=== PATIENT | female | born 1935 ===

== ENCOUNTER 2018-03-08 20:55 | Inpatient (IN) | payer MEDICAID, OTHER ==
[2018-03-08 20:55] VITALS: BMI 23.8
--- NOTE | 2018-03-08 21:20 | ED PDOC ---
Arrival/HPI - General Chief Complaint: Pain, Chronic Time Seen by Provider: 03/08/18 20:58 Historian: Patient, Family - History of Present Illness Narrative History of Present Illness (Text): 03/08/18 21:20 Sherrell Gallagher is an 82 year old female smoker, whose past medical history includes hypertension and glaucoma, who presents to the ED accompanied by family complaining of headache. Patient states she has been experiencing headache with associated non-reproducible left shoulder pain radiating down her arm for the past 4 days. Daughter states patient took Ibuprofen 800mg twice today at home, once 1 hour prior to arrival, with no significant relief. Patient denies any chest pain, shortness of breath, dizziness, vision changes, or any other complaints. Patient regularly takes Hydrochlorothiazide. Time/Duration: < week Symptom Onset: Gradual Symptom Course: Unchanged Activities at Onset: Light Context: Home Past Medical History - Provider Review Nursing Documentation Reviewed: Yes - Travel History If Yes, travel location?: [facility] - Infectious Disease Hx of Infectious Diseases: None - Cardiac Hx Cardiac Disorders: Yes Hx Hypertension: Yes - Pulmonary Hx Respiratory Disorders: No - Neurological Hx Neurological Disorder: No - HEENT Hx HEENT Disorder: Yes Hx Cataracts: Yes Hx Glaucoma: Yes - Renal Hx Renal Disorder: No - Endocrine/Metabolic Hx Endocrine Disorders: No - Hematological/Oncological Hx Blood Disorders: No - Integumentary Hx Dermatological Disorder: No - Musculoskeletal/Rheumatological Hx Musculoskeletal Disorders: No - Gastrointestinal Hx Gastrointestinal Disorders: No - Genitourinary/Gynecological Hx Genitourinary Disorders: No - Psychiatric Hx Psychophysiologic Disorder: No Hx Substance Use: No - Surgical History Hx Cataract Extraction: Yes - Anesthesia Hx Anesthesia: Yes Hx Anesthesia Reactions: No Hx Malignant Hyperthermia: No Family/Social History - Physician Review Nursing Documentation Reviewed: Yes Family/Social History: Unknown Family HX Smoking Status: Heavy Smoker > 10 Cigarettes Daily Hx Alcohol Use: No Hx Substance Use: No Allergies/Home Meds Allergies/Adverse Reactions: Allergies No Known Allergies Allergy (Verified 03/08/18 20:58) Home Medications: Home Meds Medication Instructions Recorded Confirmed hydroCHLOROthiazide [Microzide] 50 mg PO DAILY 03/08/18 03/08/18 Review of Systems - Physician Review All systems were reviewed & negative as marked: Yes - Review of Systems Constitutional: Normal. absent: Fevers Eyes: Normal ENT: Normal Respiratory: Normal. absent: SOB, Cough Cardiovascular: Normal. absent: Chest Pain Gastrointestinal: Normal. absent: Abdominal Pain, Diarrhea, Nausea, Vomiting Genitourinary Female: Normal. absent: Dysuria, Frequency, Hematuria, Urine Output Changes Musculoskeletal: Arthralgias (+left shoulder pain). absent: Back Pain, Neck Pain Skin: Normal. absent: Rash Neurological: Headache (+headache). absent: Dizziness Endocrine: Normal Hemo/Lymphatic: Normal Psychiatric: Normal Physical Exam Vital Signs Reviewed: Yes Vital Signs Temp Pulse Resp BP Pulse Ox 03/08/18 21:39 88 169/107 H 03/08/18 21:01 98.0 F 90 16 190/101 H 95 Temperature: Afebrile Blood Pressure: Hypertensive Pulse: Regular Respiratory Rate: Normal Appearance: Positive for: Well-Appearing, Non-Toxic, Comfortable Pain Distress: None Mental Status: Positive for: Alert and Oriented X 3 - Systems Exam Head: Present: Atraumatic, Normocephalic Pupils: Present: PERRL Extroacular Muscles: Present: EOMI Conjunctiva: Present: Normal Ears: Present: Normal, NORMAL TM, Normal Canal. No: Erythema, TM Bulging, Fluid , TM Perf Mouth: Present: Moist Mucous Membranes Pharnyx: Present: Normal. No: ERYTHEMA, EXUDATE, TONSILS ENLARGED, Peritonsilar Swelling, Uvular Deviation, Muffled/Hoarse Voice, Strider, Soft Palate/Uvular Edema Nose (External): Present: Atraumatic Nose (Internal): Present: Normal Inspection Neck: Present: Normal Range of Motion. No: Meningeal Signs, MIDLINE TENDERNESS , Paraspinal Tenderness Respiratory/Chest: Present: Clear to Auscultation, Good Air Exchange. No: Respiratory Distress, Accessory Muscle Use Cardiovascular: Present: Regular Rate and Rhythm, Normal S1, S2. No: Murmurs Abdomen: No: Tenderness, Distention, Peritoneal Signs Back: Present: Normal Inspection. No: CVA Tenderness, Midline Tenderness, Paraspinal Tenderness Upper Extremity: Present: Normal Inspection. No: Cyanosis, Edema Lower Extremity: Present: Normal Inspection. No: Edema Neurological: Present: GCS=15, CN II-XII Intact, Speech Normal, Motor Func Grossly Intact, Normal Sensory Function, Normal Cerebellar Funct, Memory Normal Skin: Present: Warm, Dry, Normal Color. No: Rashes Psychiatric: Present: Alert, Oriented x 3, Normal Insight, Normal Concentration Medical Decision Making ED Course and Treatment: 03/08/18 21:20 Impression: 82 year old female c/o headache and left shoulder pain for the past 4 days. Plan: -- CT Head w/o contrast -- EKG -- CXR -- Labs, cardiac enzymes -- Catapres -- Tylenol -- Reassess and disposition Prior Visits: Notes and results from previous visits were reviewed. Progress Notes: Reviewed EKG, NSR at 95 bpm. Inferior infarct. Anterior infarct. Non-specific ST /T wave changes. 03/08/18 22:54 Reviewed radiology, CXR shows no acute processes. CT Head shows: FINDINGS: BRAIN: Involutional changes. Periventricular hypoattenuation suggestive of chronic ischemic changes. No hemorrhage. VENTRICLES: No ventriculomegaly. BONES/JOINTS: Unremarkable. No acute fracture. SOFT TISSUES: Unremarkable. VASCULATURE: Atherosclerosis. SINUSES: Unremarkable as visualized. No acute sinusitis. MASTOID AIR CELLS: Unremarkable as visualized. No mastoid effusion. 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 Correlate with MRI. IMPRESSION: 1. Involutional changes. Periventricular hypoattenuation suggestive of chronic ischemic changes. 2. 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 Correlate with MRI. Dictated and Authenticated by: Chandni Morales MD 03/08/2018 10:20 PM Eastern Time ([place] & [place]) 03/08/18 23:41 Labs noted, potassium: 5.6. Kayexalate ordered. 03/08/18 23:44 Case discussed with medical office administrator hand almond blancher, who is aware and agrees with plan. 03/08/18 23:[address] Fernandez, who is aware and agrees with plan. Accepts pt in to hospitalist service. Pt will go to Telemetry observation for brain mass, shoulder/arm pain, and hyperkalemia. - Lab Interpretations Lab Results: 03/08/18 21:45 03/08/18 21:45 Lab Results 03/08/18 21:53: POC Glucose (mg/dL) 88 03/08/18 21:45: WBC 14.9 H, RBC 4.47, Hgb 14.2, Hct 41.3, MCV 92.4, MCH 31.8, MCHC 34.4, RDW 14.0, Plt Count 342, MPV 10.9 03/08/18 21:45: Sodium 141, Potassium 5.6 H*, Chloride 101, Carbon Dioxide 30, Anion Gap 15, BUN 36 H, Creatinine 1.7 H, Est GFR ( Amer) 35, Est GFR ( Non-Af Amer) 29, Random Glucose 100, Calcium 11.1 H, Total Bilirubin 0.5, AST 31 , ALT 16, Alkaline Phosphatase 102, Lactate Dehydrogenase 455, Total Creatine Kinase 32 L, Troponin I < 0.01, Total Protein 8.4 H, Albumin 4.1, Globulin 4.3, Albumin/Globulin Ratio 1.0 L 03/08/18 21:45: PT 12.5, INR 1.09, APTT 33.1 I have reviewed the lab results: Yes - RAD Interpretation Radiology Orders: 03/08/18 21:22 CHEST PORTABLE [RAD] Stat 03/08/18 21:24 HEAD W/O CONTRAST [CT] Stat Environmental Adviser: ED Physician, Radiologist - EKG Interpretation Interpreted by ED Physician: Yes Type: 12 lead EKG - Medication Orders Current Medication Orders: Discontinued Medications Acetaminophen (Tylenol 325mg Tab) 650 mg PO STAT STA Stop: 03/08/18 21:25 Last Admin: 03/08/18 21:37 Dose: 650 mg [facility] Pain/Vitals Document 03/08/18 21:37 (Rec: 03/08/18 21:38 [id number] Location Pain Location [employer] Description Constant Re-Assess: VARGAS Pain/Vitals Document 03/08/18 22:37 (Rec: 03/08/18 23:55 [id number] Pain Reassessment Is This A Pain ReAssessment? Yes Sleep Is patient sleeping during reassessment? Yes Clonidine HCl (Catapres) 0.2 mg PO STAT STA Stop: 03/08/18 21:26 Last Admin: 03/08/18 21:39 Dose: 0.2 mg [facility] Pulse and Blood Pressure Document 03/08/18 21:39 (Rec: 03/08/18 21:39 [id number]) Pulse Pulse Rate (60-90 beats/min) 88 Blood Pressure Blood Pressure (100/60-150/90 mm Hg) 169/107 Sodium Polystyrene Sulfonate (Kayexalate Susp) 30 gm PO ONCE ONE Stop: 03/08/18 23:42 Last Admin: 03/08/18 23:53 Dose: 30 gm - Scribe Statement The provider has reviewed the documentation as recorded by the Alexisibjohn Jacome All medical record entries made by the Scribe were at my direction and personally dictated by me. I have reviewed the chart and agree that the record accurately reflects my personal performance of the history, physical exam, medical decision making, and the department course for this patient. I have also personally directed, reviewed, and agree with the discharge instructions and disposition. Disposition/Present on Arrival - Present on Arrival Any Indicators Present on Arrival: No History of DVT/PE: No History of Uncontrolled Diabetes: No Urinary Catheter: No History of Decub. Ulcer: No History Surgical Site Infection Following: None - Disposition Have Diagnosis and Disposition been Completed?: Yes Diagnosis: Brain mass, Hyperkalemia, Left shoulder pain Disposition: HOSPITALIZED Disposition Time: 00:12 Patient Plan: Observation Condition: STABLE Forms: [employer] ([place])
[2018-03-08 22:36] LABS: HEMOGLOBIN 14.2 g/dL (12.0-16.0); MEAN CELL VOLUME 92.4 fl (80.0-105.0); MEAN CORPUSCULAR HEMOGLOBIN 31.8 pg (25.0-35.0); MEAN CORPUSCULAR HGB CONC 34.4 g/dl (31.0-37.0); MEAN PLATELET VOLUME 10.9 fl (7.0-11.0); RBC 4.47 10^6/uL (3.5-6.1); WHITE BLOOD COUNT 14.9 10^3/ul (4.5-11.0)
[2018-03-08 22:40] LABS: INR 1.09; PARTIAL THROMBOPLASTIN TIME 33.1 Seconds (25.1-36.5); PROTHROMBIN TIME 12.5 SECONDS (9.4-12.5)
[2018-03-08 22:47] LABS: TROPONIN I < 0.01 ng/mL
[2018-03-08 23:17] LABS: ALBUMIN 4.1 g/dL (3.0-4.8); ALT/SGPT 16 U/L (7-56); AST/SGOT 31 U/L (14-36); BLOOD UREA NITROGEN 36 mg/dL (7-21); CALCIUM 11.1 mg/dL (8.4-10.5); GFR NON-AFRICAN AMERICAN 29
[2018-03-08] MEDS ORDERED: Sod Polystyrene Sulf 15 gm/60 ml Susp PO ONE (23:41)
[2018-03-09] MEDS ORDERED: Sodium Chloride 0.9% 1,000 ML IV STA (02:13)
--- NOTE | 2018-03-09 02:35 | CP.PCM.HP ---
<NanNasir - Last Filed: 03/09/18 02:28> History of Present Illness - History of Present Illness History of Present Illness: Nasir [place], PGY-1, Internal Medicine History and Physical for Dr. Fernandez CC: Headache and left arm pain 82 year old female Luxembourger speaking female with past medical history of right eye blindness, hypertension, questionable HANNAH, and longstanding smoking history presents with headache and left arm pain for 3 days. Patient reports she has never had the headache before. She reports that it is a pressure pain on the top of her head. Pain is nonradiating and intermittent. No exacerbating factors. Remitting factors include NSAIDs. Patient also reports left chest pain that radiates into her left arm. She has never had this pain before. Patient describes the pain as crampy throughout the left chest into the left arm. Pain is constant and radiates to the back. No exacerbating or remitting factors. Exercise or movement does not exacerbate the pain. Patient also reports constipation. She generally has 1-2 bowel movements a day, but her last bowel movement was 2 days ago. Patient denies jaw pain, SOB, diaphoresis, nausea, vomiting, abdominal pain, dizziness, fever, diarrhea, dysuria, and hematuria. 12 -point ROS is negative except for what is listed above. PMH: as stated above PSH: , cholecystectomy, cataract surgery Allergies: NKDA FMHx: denies SHx: smoked 1/4 ppd for 67 years. currently smokes. denies alcohol or recreational drug use PMD: Dr. Figueroa Pharmacy: [address] Insurance: denies Present on Admission - Present on Admission Any Indicators Present on Admission: No History of DVT/PE: No History of Uncontrolled Diabetes: No Review of Systems - Constitutional Constitutional: absent: Anorexia, Chills, Fatigue, Fever - EENT Eyes: Loss of Vision (in left eye. retained vision in right eye. no change in vision in right eye) Ears: absent: Decreased Hearing, Ear Pain - Cardiovascular Cardiovascular: Chest Pain (left sided), Pain Radiating to Arm/Neck/Jaw ( radiates into left arm). absent: Dyspnea, Dyspnea on Exertion - Respiratory Respiratory: absent: Cough, Dyspnea - Gastrointestinal Gastrointestinal: Constipation. absent: Diarrhea, Nausea, Vomiting - Genitourinary Genitourinary: absent: Dysuria, Hematuria - Musculoskeletal Musculoskeletal: Back Pain. absent: Neck Pain - Neurological Neurological: Headaches. absent: Abnormal Speech, Tingling, Weakness - Psychiatric Psychiatric: absent: Anxiety, Depression - Endocrine Endocrine: Cold Intolorance Past Patient History - Infectious Disease Hx of Infectious Diseases: None - Past Medical History & Family History Past Medical History?: Yes - Past Social History Smoking Status: Heavy Smoker > 10 Cigarettes Daily - CARDIAC Hx Cardiac Disorders: Yes Hx Hypertension: Yes - PULMONARY Hx Respiratory Disorders: No Other/Comment: current heavy smoker>10cig/day - NEUROLOGICAL Hx Neurological Disorder: No - HEENT Hx HEENT Problems: Yes Hx Cataracts: Yes Hx Glaucoma: Yes - RENAL Hx Chronic Kidney Disease: No - ENDOCRINE/METABOLIC Hx Endocrine Disorders: No - HEMATOLOGICAL/ONCOLOGICAL Hx Blood Disorders: No - INTEGUMENTARY Hx Dermatological Problems: No - MUSCULOSKELETAL/RHEUMATOLOGICAL Hx Musculoskeletal Disorders: No Hx Falls: No - GASTROINTESTINAL Hx Gastrointestinal Disorders: No - GENITOURINARY/GYNECOLOGICAL Hx Genitourinary Disorders: No - PSYCHIATRIC Hx Psychophysiologic Disorder: No - SURGICAL HISTORY Hx Surgeries: Yes Other/Comment: cataract extraction - ANESTHESIA Hx Anesthesia: Yes Hx Anesthesia Reactions: No Hx Malignant Hyperthermia: No Meds Allergies/Adverse Reactions: Allergies Allergy/AdvReac Type Severity Reaction Status Date / Time No Known Allergies Allergy Verified 03/08/18 20:58 Physical Exam - Constitutional Appears: Well, Non-toxic, No Acute Distress - Head Exam Head Exam: ATRAUMATIC, NORMAL INSPECTION, NORMOCEPHALIC - Eye Exam Eye Exam: EOMI, PERRL - ENT Exam ENT Exam: Mucous Membranes Moist Additional comments: poor hygiene. white plaque on tongue - Respiratory Exam Respiratory Exam: Clear to Auscultation Bilateral, NORMAL BREATHING PATTERN - Cardiovascular Exam Cardiovascular Exam: REGULAR RHYTHM, RRR - GI/Abdominal Exam GI & Abdominal Exam: Normal Bowel Sounds, Soft. absent: Tenderness - Extremities Exam Extremities exam: Positive for: full ROM, normal inspection, pedal edema (+1-2) , pedal pulses present - Back Exam Back exam: NORMAL INSPECTION - Neurological Exam Neurological exam: Alert, CN II-XII Intact, Normal Gait, Oriented x3, Reflexes Normal - Psychiatric Exam Psychiatric exam: Normal Affect, Normal Mood - Skin Skin Exam: Dry, Intact, Normal Color Results - Vital Signs Recent Vital Signs: Last Vital Signs Temp 97.3 F L 03/09/18 01:16 Pulse 91 H 03/09/18 01:16 Resp 18 03/09/18 01:16 BP 98/64 L 03/09/18 01:16 Pulse Ox 96 03/09/18 00:58 - Labs Result Diagrams: 03/08/18 21:45 03/08/18 21:45 - Impressions Impression: Normal sinus rhythm Vent rate: 95 WY: 176 QRS: 82 QTc: 419 Assessment & Plan - Assessment and Plan (Free Text) Assessment: 82 year old female Luxembourger speaking female with past medical history of right eye blindness, hypertension, questionable HANNAH, and longstanding smoking history presents with headache and left arm pain for 3 days. Patient will be admitted for headache 2/2 to suprasellar mass and chest pain 2/2 to costochondritis vs. ACS Plan: Headache 2/2 to suprasellar mass vs. tension headache vs. migrane vs. elevated blood pressure -CT Head: Involutional changes. Periventricular hypoattenuation suggestive of chronic ischemic changes. 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 -Brain MRI without contrast ordered. -NPO due to pending imaging. -BP on arrival: 190/101. Last BP: 98/64 -Neurocheck Q4 -Ca: elevated at 11.1 -PTH ordered to evaluate for cause of hypercalcemia. -TSH, T4, prolactin, IGF-1, LH, FSH, cortisol ordered to evaluate suprasellar mass -Motrin 400 mg Q6PRN for headache -Dr. Deng, Neurology, consulted for recommendations Chest pain 2/2 to costochondritis vs. ACS -EKG: Normal sinus rhythm, HR: 95 -Troponin: <0.01. 3 more troponins Q6 ordered. -BNP ordered -Aspirin 81 daily -Nitroglycerin 0.4 mg Q5M PRN -Motrin 400 mg Q6PRN for pain. -Dr. Hernández, Cardiology, consulted for recommendations. Hypertension -BP on arrival: 190/101. Last BP: 98/64 -1 L NS given due to decreased blood pressure. -Clonidine 0.1 mg Q6PRN for BP>180/120 -Home HCTZ held. Hyperkalemia -K: 5.6 -Kayexelate given in the emergency department. -EKG shows no peaked T waves -Follow up potassium level in the morning. Acute Kidney Injury -BUN/Cr: 36/1.7 -Baseline unknown -Avoid nephrotoxins and IV contrast -Dr. Camarena, Nephrology, consulted for recommendations. -Continue to monitor Leukocytosis 2/2 to stress vs. infection vs. neoplasm -WBC: 14.9 -Patient does not fulfill SIRS criteria currently: WBC: 14.9, HR: 86, RR: 18, Temp: 97.3 -Follow up WBC count in the AM DVT prophylaxis: heparin 5000 U subq daily GI prophylaxis: protonix 40 mg daily Patient plan discussed with Dr. Fernandez. - Date & Time Date: 03/09/18 Time: 02:41 <Minh Fernandez - Last Filed: 03/09/18 04:41> Results - Vital Signs Recent Vital Signs: Last Vital Signs Temp 97.3 F L 03/09/18 01:16 Pulse 91 H 03/09/18 01:16 Resp 18 03/09/18 01:16 BP 98/64 L 03/09/18 01:16 Pulse Ox 96 03/09/18 00:58 - Labs Result Diagrams: 03/08/18 21:45 03/09/18 04:00 Labs: Laboratory Results - last 24 hr 03/09/18 04:00 Sodium 144 Potassium 5.2 H Chloride 104 Carbon Dioxide 30 Anion Gap 16 BUN 38 H Creatinine 2.0 H Est GFR ( Amer) 29 Est GFR (Non-Af Amer) 24 Random Glucose 93 Calcium 10.5 Phosphorus 4.6 H Magnesium 1.9 Total Bilirubin 0.4 AST 27 ALT 17 Alkaline Phosphatase 88 Total Protein 7.6 Albumin 3.7 Globulin 3.9 Albumin/Globulin Ratio 0.9 L Attending/Attestation - Attestation I have personally seen and examined this patient.: Yes I have fully participated in the care of the patient.: Yes I have reviewed all pertinent clinical information: Yes Notes (Text): 03/09/18 04:40 Patient was seen when she was in the ER in bed # 5. Medical record was reviewed. Agree with history , physical examination, assessment and plan.82 Year old woman came in with complaint of left shoulder pain going down to arm, head ache of 4 days duration, has PMH of HTN,Cataract, Glaucoma,Arthritis, Cholecystectomy,,Tobacco use,has WBC 14.9 ,potassium level of 5.6 mEq, BUN/CR 36/1.t,troponin 0.86,calcium 11.1,CT head shows [id number] hyperdense mass of sella turcia,EKG is NSR, ST T changes, will treat her with hydration, kayexalate, serial EKG, troponin, neurology consultation,cardiaology consultation,analgesics.
[2018-03-09 04:32] LABS: ALB/GLOB RATIO 0.9 (1.1-1.8); ALBUMIN 3.7 g/dL (3.0-4.8); ALT/SGPT 17 U/L (7-56); AST/SGOT 27 U/L (14-36); BLOOD UREA NITROGEN 38 mg/dL (7-21); CALCIUM 10.5 mg/dL (8.4-10.5); GFR NON-AFRICAN AMERICAN 24
[2018-03-09 04:43] LABS: B-TYPE NATRIURETIC PEPTIDE 1090 pg/mL (0-450); TROPONIN I < 0.01 ng/mL
[2018-03-09 05:07] LABS: BASO # 0.04 K/mm3 (0.0-2.0); BASO % 0.3 % (0.0-3.0); EOS # 0.3 (0.0-0.7); EOS % 1.9 % (1.5-5.0); GRAN # 9.53 (1.4-6.5); GRAN % 66.3 % (50.0-68.0); HEMOGLOBIN 13.1 g/dL (12.0-16.0); LYMPH # 2.9 (1.2-3.4); LYMPH % 20.4 % (22.0-35.0); MEAN CELL VOLUME 92.1 fl (80.0-105.0); MEAN CORPUSCULAR HEMOGLOBIN 31.3 pg (25.0-35.0); MEAN PLATELET VOLUME 10.6 fl (7.0-11.0); MONO # 1.6 (0.1-0.6); MONO % 11.1 % (1.0-6.0); RBC 4.18 10^6/uL (3.5-6.1); WHITE BLOOD COUNT 14.4 10^3/ul (4.5-11.0)
[2018-03-09 05:08] LABS: T4 3.7 ug/dL (5.5-11.0)
[2018-03-09 06:41] LABS: HDL CHOLESTEROL 34 mg/dL (29-60)
[2018-03-09 06:52] LABS: LDL CHOLESTEROL 37 mg/dL (0-129)
[2018-03-09 07:56] VITALS: RESP 20
--- NOTE | 2018-03-09 08:24 | CT ---
Date of service: 03/08/2018 PROCEDURE: CT HEAD WITHOUT CONTRAST. HISTORY: headache COMPARISON: None available. TECHNIQUE: Axial computed tomography images were obtained through the head/brain without intravenous contrast. Radiation dose: Total exam DLP = 742.75 mGy-cm. This CT exam was performed using one or more of the following dose reduction techniques: Automated exposure control, adjustment of the mA and/or kV according to patient size, and/or use of iterative reconstruction technique. FINDINGS: HEMORRHAGE: No intracranial hemorrhage. BRAIN: There is a large 3.5 x 3.8 x 3.6 cm well-circumscribed round hyperdense mass in the suprasellar region. There are mild chronic microangiopathic changes. There is no abnormal extra-axial fluid collection. There is no territorial infarction. The midline sagittal structures are normal. VENTRICLES: There is mild age-related global parenchymal volume loss and proportionate enlargement of the ventricles and cortical sulci. CALVARIUM: The skull base and calvarium are normal. PARANASAL SINUSES: Predominantly clear. MASTOID AIR CELLS: Predominantly clear. OTHER FINDINGS: None. 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 Correlation with MRI of the brain without and with intravenous contrast is recommended for further evaluation. A preliminary report was provided by [email or web address].
[2018-03-09] MEDS ORDERED: Enoxaparin 40 mg Syringe SC SCH (10:00)
--- NOTE | 2018-03-09 10:20 | CP.PCM.CON ---
History of Present Illness - History of Present Illness History of Present Illness: I was called for a neurology consult for Miss Sherrell Gallagher, who is an 82 year old female smoker, with pmh of htn, glaucoma and prior mass lesion, size and location not known. She presented with a positional headache, 8/10, throbbing, increased by cough and alleviated by rest, but not by ibuprofen. She denies vomiting, diarrhea, aphasia or weakness. Of note, the family is at bedside and state that she does not have chronic headaches but that she has dementia and requires full care. There is a history of a prior MRI brain showing an intracranial in [facility] many years ago, but we do not know what the exact report stated. Family will bring the films if they are able to find them. ROS: as above PMH/PSH: as above. FH/SH: smoked 7-8 cigarettes a day for many years. Lives [place] [facility]. All: nkda. on exam: exam conducted in colomb[place] AAOx1. PERRL. CN 2-12 normal. Appears to have bitemporal hemianopsia. strength, sensory exam normal. Has a bit of spastic gait. +2 dtr ul and ll bl. Toes downgoing. no clonus. rhomberg negative. Past Patient History - Infectious Disease Hx of Infectious Diseases: None - Past Medical History & Family History Past Medical History?: Yes - Past Social History Smoking Status: Heavy Smoker > 10 Cigarettes Daily - CARDIAC Hx Cardiac Disorders: Yes Hx Hypertension: Yes - PULMONARY Hx Respiratory Disorders: No Other/Comment: current heavy smoker>10cig/day - NEUROLOGICAL Hx Neurological Disorder: No - HEENT Hx HEENT Problems: Yes Hx Cataracts: Yes Hx Glaucoma: Yes - RENAL Hx Chronic Kidney Disease: No - ENDOCRINE/METABOLIC Hx Endocrine Disorders: No - HEMATOLOGICAL/ONCOLOGICAL Hx Blood Disorders: No - INTEGUMENTARY Hx Dermatological Problems: No - MUSCULOSKELETAL/RHEUMATOLOGICAL Hx Musculoskeletal Disorders: No Hx Falls: No - GASTROINTESTINAL Hx Gastrointestinal Disorders: No - GENITOURINARY/GYNECOLOGICAL Hx Genitourinary Disorders: No - PSYCHIATRIC Hx Psychophysiologic Disorder: No - SURGICAL HISTORY Hx Surgeries: Yes Other/Comment: cataract extraction - ANESTHESIA Hx Anesthesia: Yes Hx Anesthesia Reactions: No Hx Malignant Hyperthermia: No Meds Allergies/Adverse Reactions: Allergies Allergy/AdvReac Type Severity Reaction Status Date / Time No Known Allergies Allergy Verified 08/25/18 20:58 - Medications Medications: Current Medications Amlodipine Besylate (Norvasc) 5 mg PO DAILY [facility] Aspirin (Ecotrin) 81 mg PO DAILY [facility] Last Admin: 03/09/18 09:11 Dose: 81 mg Dexamethasone (Decadron Inj) 2 mg IVP Q12 [facility] Heparin Sodium (Porcine) (Heparin) 5,000 units SC Q12 FADUMO PRN Reason: Protocol Last Admin: 03/09/18 09:11 Dose: 5,000 units Sodium Chloride (Sodium Chloride 0.9%) 1,000 mls @ 80 mls/hr IV .[id number] STA Stop: 03/09/18 14:42 Last Admin: 03/09/18 02:38 Dose: 80 mls/hr Ibuprofen (Motrin Tab) 400 mg PO Q6H PRN PRN Reason: Headache Last Admin: 03/09/18 09:12 Dose: 400 mg Levothyroxine Sodium (Synthroid) 25 mcg PO 0600 [facility] Nitroglycerin (Nitrostat Sl Tab) 0.4 mg SL Q5M PRN PRN Reason: Pain, moderate (4-7) Pantoprazole Sodium (Protonix Inj) 40 mg IVP DAILY [facility] Last Admin: 03/09/18 09:12 Dose: 40 mg Results - Vital Signs Recent Vital Signs: Last Vital Signs Temp 97 F L 03/09/18 07:55 Pulse 76 03/09/18 07:55 Resp 20 03/09/18 07:55 BP 119/74 03/09/18 07:55 Pulse Ox 96 03/09/18 07:55 - Labs Result Diagrams: 03/09/18 04:00 03/09/18 04:00 - Imaging and Cardiology CT scan - head Status: Image reviewed by me, Report reviewed by me (ct head: 3.5 by 3.8 by 3.6 cm suprasellar mass ) Assessment & Plan - Assessment and Plan (Free Text) Assessment: 82 yr old woman with suprasellar mass and long standing history of smoking, presenting with concerning headache that may suggest expansion of mass lesion. I am also very concerned about her smoking history and that this may be a metastasis. In light of the delicate location of this lesion, i would recommend neurosurgical consult and starting Decadron 2mg iv q 12 hours with gi prophylaxis and fingersticks. I would also recommend CT abdomen chest. Thank you for consulting us. DR. lara
--- NOTE | 2018-03-09 10:30 | RAD ---
Date of service: 03/08/2018 HISTORY: pain COMPARISON: 02/10/2015. FINDINGS: LUNGS: The lungs are well inflated and clear. PLEURA: No significant pleural effusion identified, no pneumothorax apparent. CARDIOVASCULAR: Normal. OSSEOUS STRUCTURES: No significant abnormalities. VISUALIZED UPPER ABDOMEN: Normal. OTHER FINDINGS: None. IMPRESSION: No active pulmonary disease.
[2018-03-09] MEDS: Dexamethasone 4 mg/1 ml IVP SCH ×2 (10:41→21:04)
--- NOTE | 2018-03-09 10:42 | CP.PCM.CON ---
History of Present Illness - History of Present Illness History of Present Illness: CONSULT FOR DR. ARRIAZA Awake,complaining of headache,denies chest pain now Reason for consultation: Cardiac evaluation of chest pain Brief history of present illness:A 82 year old female who came in to the ER due to new onset headache and left arm pain,and chest pain. Pain describes as crampy left chest pain radiating to left arm and back. History of right eye blindness, hypertension, questionable HANNAH,cholecystectomy,cataract surgery, and current smoker. Seen and examined by me and Dr. Christopher Covering for Dr. Arriaza Review of Systems - Review of Systems All systems: reviewed and no additional remarkable complaints except Review of Systems: per HPI Past Patient History - Infectious Disease Hx of Infectious Diseases: None - Past Medical History & Family History Past Medical History?: Yes - Past Social History Smoking Status: Heavy Smoker > 10 Cigarettes Daily - CARDIAC Hx Cardiac Disorders: Yes Hx Hypertension: Yes - PULMONARY Hx Respiratory Disorders: No Other/Comment: current heavy smoker>10cig/day - NEUROLOGICAL Hx Neurological Disorder: No - HEENT Hx HEENT Problems: Yes Hx Cataracts: Yes Hx Glaucoma: Yes - RENAL Hx Chronic Kidney Disease: No - ENDOCRINE/METABOLIC Hx Endocrine Disorders: No - HEMATOLOGICAL/ONCOLOGICAL Hx Blood Disorders: No - INTEGUMENTARY Hx Dermatological Problems: No - MUSCULOSKELETAL/RHEUMATOLOGICAL Hx Musculoskeletal Disorders: No Hx Falls: No - GASTROINTESTINAL Hx Gastrointestinal Disorders: No - GENITOURINARY/GYNECOLOGICAL Hx Genitourinary Disorders: No - PSYCHIATRIC Hx Psychophysiologic Disorder: No - SURGICAL HISTORY Hx Surgeries: Yes Other/Comment: cataract extraction - ANESTHESIA Hx Anesthesia: Yes Hx Anesthesia Reactions: No Hx Malignant Hyperthermia: No Meds Allergies/Adverse Reactions: Allergies Allergy/AdvReac Type Severity Reaction Status Date / Time No Known Allergies Allergy Verified 03/08/18 20:58 - Medications Medications: Current Medications Amlodipine Besylate (Norvasc) 5 mg PO DAILY [facility] Aspirin (Ecotrin) 81 mg PO DAILY [facility] Last Admin: 03/09/18 09:11 Dose: 81 mg Dexamethasone (Decadron Inj) 2 mg IVP Q12 [facility] Heparin Sodium (Porcine) (Heparin) 5,000 units SC Q12 [facility] PRN Reason: Protocol Last Admin: 03/09/18 09:11 Dose: 5,000 units Sodium Chloride (Sodium Chloride 0.9%) 1,000 mls @ 80 mls/hr IV .[id number] STA Stop: 03/09/18 14:42 Last Admin: 03/09/18 02:38 Dose: 80 mls/hr Levothyroxine Sodium (Synthroid) 25 mcg PO 0600 [facility] Nitroglycerin (Nitrostat Sl Tab) 0.4 mg SL Q5M PRN PRN Reason: Pain, moderate (4-7) Pantoprazole Sodium (Protonix Inj) 40 mg IVP DAILY [facility] Last Admin: 03/09/18 09:12 Dose: 40 mg Physical Exam - Constitutional Appears: No Acute Distress - Eye Exam Eye Exam: Normal appearance - ENT Exam ENT Exam: Mucous Membranes Moist - Respiratory Exam Respiratory Exam: Decreased Breath Sounds, Clear to Auscultation Bilateral, NORMAL BREATHING PATTERN - Cardiovascular Exam Cardiovascular Exam: +S1, +S2 Additional comments: left arm pain radiating to chest - GI/Abdominal Exam GI & Abdominal Exam: Normal Bowel Sounds, Soft - Neurological Exam Neurological exam: Alert, Oriented x3 Additional comments: headache - Skin Skin Exam: Warm Results - Vital Signs Recent Vital Signs: Last Vital Signs Temp 97 F L 03/09/18 07:55 Pulse 76 03/09/18 07:55 Resp 20 03/09/18 07:55 BP 119/74 03/09/18 07:55 Pulse Ox 96 03/09/18 07:55 - Labs Result Diagrams: 03/09/18 04:00 03/09/18 04:00 Assessment & Plan - Assessment and Plan (Free Text) Assessment: 82 year old female who came in to the ER due to new onset headache and left arm pain,and chest pain. Pain describes as crampy left arm pain radiating to left chest and back. History of right eye blindness, hypertension, questionable HANNAH, cholecystectomy,cataract surgery, and current smoker. atypical chest pain. Troponin normal x 2. Chest X ray-normal, no previous cardiac work up done at [facility]. Plan: ECHO to evaluate LV function Neuro on consult for headache Heart rate and blood pressure controlled On Norvasc 5 mg daily,ASA 81 mg Daily,Synthroid 25 mcg daily. Continue current medications Continue current treatment Further recommendation during hospital course Dr. Arriaza will follow up care on Saturday Plan and treatment discussed with Dr. Christopher Thank you for the opportunity of taking care of Ms. Sherrell Gallagher - Date & Time Date: 03/09/18 Time: 10:00
--- NOTE | 2018-03-09 10:51 | CP.PCM.PN ---
Subjective - Date & Time of Evaluation Date of Evaluation: 03/09/18 Time of Evaluation: 10:49 - Subjective Subjective: Pituitary macroadenoma Endo studies pending This cannot be surgically treated at [facility] This is notemeergncy requiring emergency transfer to another hospital Ok to d/c pt and refer to office for f/u and surgical decision making Objective - Vital Signs/Intake and Output Vital Signs (last 24 hours): Temp Pulse Resp BP Pulse Ox 97 F L 76 20 119/74 96 03/09/18 07:55 03/09/18 07:55 03/09/18 07:55 03/09/18 10:40 03/09/18 07:55 - Medications Medications: Current Medications Amlodipine Besylate (Norvasc) 5 mg PO DAILY [facility] Last Admin: 03/09/18 10:40 Dose: 5 mg Aspirin (Ecotrin) 81 mg PO DAILY [facility] Last Admin: 03/09/18 09:11 Dose: 81 mg Dexamethasone (Decadron Inj) 2 mg IVP Q12 [facility] Last Admin: 03/09/18 10:41 Dose: 2 mg Heparin Sodium (Porcine) (Heparin) 5,000 units SC Q12 [facility] PRN Reason: Protocol Last Admin: 03/09/18 09:11 Dose: 5,000 units Sodium Chloride (Sodium Chloride 0.9%) 1,000 mls @ 80 mls/hr IV .[id number] STA Stop: 03/09/18 14:42 Last Admin: 03/09/18 02:38 Dose: 80 mls/hr Levothyroxine Sodium (Synthroid) 25 mcg PO 0600 [facility] Nitroglycerin (Nitrostat Sl Tab) 0.4 mg SL Q5M PRN PRN Reason: Pain, moderate (4-7) Pantoprazole Sodium (Protonix Inj) 40 mg IVP DAILY [facility] Last Admin: 03/09/18 09:12 Dose: 40 mg - Labs Labs: PT 12.5 SECONDS (9.4-12.5) 03/08/18 21:45 INR 1.09 03/08/18 21:45 APTT 33.1 Seconds (25.1-36.5) 03/08/18 21:45
[2018-03-09 11:45] LABS: URINE APPEARANCE CLEAR (CLEAR); URINE BILIRUBIN NEGATIVE (NEGATIVE); URINE BLOOD MODERATE (NEGATIVE); URINE COLOR YELLOW (YELLOW); URINE GLUCOSE (UA) NEGATIVE (NEGATIVE); URINE LEUKOCYTE ESTERASE TRACE Leu/uL (NEGATIVE); URINE PROTEIN 30 mg/dL (<30 mg/dL); URINE UROBILINOGEN 0.2 E.U./dL (<1 E.U./dL)
[2018-03-09 11:59] LABS: URINE BACTERIA FEW (NEG); URINE COARSE GRANULAR CAST TRACE /hpf (0-2); URINE EPITHELIAL CELLS 0 - 2 /hpf (0-5); URINE WBC 0 - 2 /hpf (0-6)
[2018-03-09 12:01] LABS: PROLACTIN 129.2 ng/mL (3.0-18.9)
--- NOTE | 2018-03-09 12:54 | CARD ---
APPROVED REPORT Date of service: 03/08/2018 EKG Measurement Heart [id number] <Conclusion> Normal sinus rhythm Possible Inferior infarct, age undetermined Possible Anterior infarct, age undetermined Abnormal ECG
--- NOTE | 2018-03-09 12:58 | CT ---
Date of service: 03/09/2018 PROCEDURE: CT Chest, Abdomen and Pelvis without intravenous contrast HISTORY: evaluation COMPARISON: None available. TECHNIQUE: Radiation dose: Total exam DLP = 394.64 mGy-cm. This CT exam was performed using one or more of the following dose reduction techniques: Automated exposure control, adjustment of the mA and/or kV according to patient size, and/or use of iterative reconstruction technique. FINDINGS: CT CHEST WITHOUT CONTRAST: LUNGS: The lungs are well inflated. There are nonspecific tiny nodules in the peripheral right upper lobe. No focal consolidation or mass. There are no endobronchial lesions. There is subsegmental atelectasis/ scarring in the lower lobes, worse on the left. MEDIASTINUM: No pericardial effusion. Normal caliber aorta and pulmonary arterial trunk. Normal size heart. LYMPH NODES: No bulky mediastinal adenopathy. PLEURA: No pneumothorax. No pleural fluid. BONES: Unremarkable. OTHER FINDINGS: None. CT ABDOMEN AND PELVIS: LIVER: Normal in size. No gross lesion or ductal dilatation. GALLBLADDER AND BILE DUCTS: Not visualized. PANCREAS: Normal in sinus. No gross lesion or ductal dilatation. SPLEEN: Normal in size. ADRENALS: Mild thickening without discrete nodule. KIDNEYS AND URETERS: Normal in size. No hydronephrosis. No solid mass. There is a 4.1 x 2.8 cm simple cyst in the upper pole. VASCULATURE: Unremarkable. No aortic aneurysm. BOWEL: The small bowel loops are normal in caliber there is sigmoid diverticulosis without CT evidence for acute diverticulitis. . No obstruction. No gross mural thickening. APPENDIX: Normal appendix. PERITONEUM: No free fluid. No free air. LYMPH NODES: No enlarged lymph nodes. BLADDER: Partially decompressed. REPRODUCTIVE: The uterus is normal in size. BONES: No acute fracture. Within normal limits for the patient's age OTHER FINDINGS: None. IMPRESSION: No acute chest, abdominal or pelvic abnormality.
--- NOTE | 2018-03-09 13:54 | CP.PCM.CON ---
History of Present Illness - History of Present Illness History of Present Illness: Nephrology Consultation Note: Assessment: Stable Acute Kidney Injury (N17.9) likely due to pre-renal state Hypertensive Chronic Kidney Disease (I12.9) Chronic Kidney Disease (N18.3) Stage 3 with ? mg proteinuria (R80.9) likely due to HTN/age related decline hypercalcemia, hyperkalemia supra-sellar mass active smoker Plan No acute need for renal replacement therapy at this time. Hypertension control with meds as ordered. Maintain hemodynamics stable. Avoid hypotension. Patient not on ACEI/ARB due to recent HANNAH and hyperkalemia Monitor Input/Output, daily weights and renal function with basic metabolic panel continue with IVF hold thiazide diuretics neurology following, work up for supra-sellar mass as per neuro Check urine analysis, spot protein/creatinine, albumin/creatinine ratio Check for 25-OH vitamin D, iPTH, PTH-rp, phosphorus level. Dose meds/antibiotics for reduced GFR. Avoid fleets enema/magnesium based laxatives. Avoid nephrotoxins/NSAIDs/ iodinated contrast (unless needed emergently) Glycemic control, smoking cessation Further work up/management as per primary team Thanks for allowing me to participate in care of your patient. Will follow patient with you. Please call if any Qs Dr Karan Camarena Office: [phone] Chief Complaint; headache Reason for consult: Acute Kidney Injury HPI: Pt is a 82 F with hx of hypertension (years) active smoker, memory impairment presented with complaints of headache and found to have suprasellar mass. renal consult for elevated cr.daughter says she was told 2 months ago about kidneys but she doesn't remember what was mentioned. pt lives with daughter and had low appetite with decreased oral intake Denies OTC/herbal meds or NSAIDs No recent iodinated contrast exposure. Noted obvious episodes of low BP (98/64). ROS: Cardiovascular: No chest pain. Pulmonary: No shortness of breath Gastrointestinal: denies abdominal pain No nausea. No vomiting. Genitourinary: No pain while urinating. Denies blood in urine. All other negative except as mentioned in HPI. limited from pt Physical Examination: General Appearance: Comfortable, in no acute respiratory distress, co-operative . Vitals reviewed and noted as below Head; Atraumatic, normocephalic ENT: no ulcers no thrush. Tongue is midline. Oropharynx: no rash or ulcers. EYES: Pupils are equal, round and reactive to light accommodation. Sclera is anicteric. Neck; supple no lymphadenopathy, no thyromegaly or bruit Lungs: Normal respiratory rate/effort. Breath sounds bilateral equal and clear Heart: Normal rate. s1s2 normal. No rub or gallop. Extremities: no edema. No varicose veins Neurological: Patient is alert, awake and oriented to person, place and time. Strength bilateral appropriate and equal Skin: Warm and dry. Normal turgor. No rash. Palpitation: Normal elasticity for age Abdomen: Abdomen is soft. Bowel sounds +. There is no abdominal tenderness, no guarding/rigidity no organomegaly Psych: lack insight and normal affect/mood MSK: no joint tenderness or swelling. Digits and nails normal, no deformity : kidney or bladder not palpable Labs/imaging reviewed. Past medical history, past surgical history, family history, social history, allergy reviewed and noted as below Family hx: no hx of CKD. Rest non-contributory renal imaguing: Rt kidney 4 cm simple cyst Past Patient History - Infectious Disease Hx of Infectious Diseases: None - Past Medical History & Family History Past Medical History?: Yes - Past Social History Smoking Status: Heavy Smoker > 10 Cigarettes Daily - CARDIAC Hx Cardiac Disorders: Yes Hx Hypertension: Yes - PULMONARY Hx Respiratory Disorders: No Other/Comment: current heavy smoker>10cig/day - NEUROLOGICAL Hx Neurological Disorder: No - HEENT Hx HEENT Problems: Yes Hx Cataracts: Yes Hx Glaucoma: Yes - RENAL Hx Chronic Kidney Disease: No - ENDOCRINE/METABOLIC Hx Endocrine Disorders: No - HEMATOLOGICAL/ONCOLOGICAL Hx Blood Disorders: No - INTEGUMENTARY Hx Dermatological Problems: No - MUSCULOSKELETAL/RHEUMATOLOGICAL Hx Musculoskeletal Disorders: No Hx Falls: No - GASTROINTESTINAL Hx Gastrointestinal Disorders: No - GENITOURINARY/GYNECOLOGICAL Hx Genitourinary Disorders: No - PSYCHIATRIC Hx Psychophysiologic Disorder: No - SURGICAL HISTORY Hx Surgeries: Yes Other/Comment: cataract extraction - ANESTHESIA Hx Anesthesia: Yes Hx Anesthesia Reactions: No Hx Malignant Hyperthermia: No Meds Allergies/Adverse Reactions: Allergies Allergy/AdvReac Type Severity Reaction Status Date / Time No Known Allergies Allergy Verified 03/08/18 20:58 - Medications Medications: Current Medications Amlodipine Besylate (Norvasc) 5 mg PO DAILY [facility] Last Admin: 03/09/18 10:40 Dose: 5 mg Aspirin (Ecotrin) 81 mg PO DAILY [facility] Last Admin: 03/09/18 09:11 Dose: 81 mg Dexamethasone (Decadron Inj) 2 mg IVP Q12 [facility] Last Admin: 03/09/18 10:41 Dose: 2 mg Heparin Sodium (Porcine) (Heparin) 5,000 units SC Q12 [facility] PRN Reason: Protocol Last Admin: 03/09/18 09:11 Dose: 5,000 units Sodium Chloride (Sodium Chloride 0.9%) 1,000 mls @ 80 mls/hr IV .[id number] STA Stop: 03/09/18 14:42 Last Admin: 03/09/18 02:38 Dose: 80 mls/hr Levothyroxine Sodium (Synthroid) 25 mcg PO 0600 [facility] Nitroglycerin (Nitrostat Sl Tab) 0.4 mg SL Q5M PRN PRN Reason: Pain, moderate (4-7) Pantoprazole Sodium (Protonix Inj) 40 mg IVP DAILY [facility] Last Admin: 03/09/18 09:12 Dose: 40 mg Results - Vital Signs Recent Vital Signs: Last Vital Signs Temp 97 F L 03/09/18 07:55 Pulse 78 03/09/18 10:00 Resp 20 03/09/18 07:55 BP 119/74 03/09/18 10:40 Pulse Ox 96 03/09/18 07:55 - Labs Result Diagrams: 03/09/18 04:00 03/09/18 04:00 Labs: Laboratory Results - last 24 hr 03/09/18 11:12 Urine Color Yellow Urine Appearance Clear Urine pH 6.0 Ur Specific [place] 1.020 Urine Protein 30 H Urine Glucose (UA) Negative Urine Ketones Negative Urine Blood Moderate H Urine Nitrate Negative Urine Bilirubin Negative Urine Urobilinogen 0.2 Ur Leukocyte Esterase Trace H Urine RBC 5 - 10 Urine WBC 0 - 2 Ur Epithelial Cells 0 - 2 Urine Bacteria Few Coarse Granular Casts Trace H
--- NOTE | 2018-03-09 15:44 | CON ---
Copied To: Tracy Henning MD Attending MD: Tracy Henning MD DATE: 03/09/2018 ENDOCRINOLOGY CONSULT LOCATION: In room 360. HISTORY OF PRESENT ILLNESS: This is an 82-year-old female with known history of hypertension and presenting here with persistent headaches and is undergoing neurological workup at this time whereupon a CAT scan of the head showed a suprasellar mass and is now being referred for endocrine evaluation and management. She also has early hypothyroidism and has been started on a low dose of levothyroxine replacement therapy. PAST MEDICAL HISTORY: As mentioned above, history of hypertension, on diuretic therapy. She also has significant dementia with impaired cognitive ability and even emotional lability and needs full family support at this time. FAMILY HISTORY: Positive for hypertension and heart disease. SOCIAL HISTORY: The patient is actually based in [place] and was only visiting at this time. Admits to longstanding nicotine dependence and smokes half a pack a day as noted. REVIEW OF SYSTEMS: As per the family, has had increasing bouts of dizziness and lightheadedness with bifrontal headaches. No chest pains or palpitations. Her oral intake is variable with occasional dyspepsia and habitual constipation. PHYSICAL EXAMINATION: GENERAL: This is an average built female, in no apparent distress. VITAL SIGNS: Blood pressure of 140/90; pulse of 70 beats per minute, regular; temperature 98; respirations 20; height is 4 feet 11 inches, weight is 121 pounds. HEENT: Head normocephalic. Eyes anicteric with pink conjunctivae. Funduscopy not possible at this time. Ears, nose and throat otherwise normal. NECK: Supple. Thyroid gland is normal in size. No carotid bruits or any cervical adenopathy. CARDIOPULMONARY: Some adynamic precordium. S1, S2 is rapid and regular. Lungs are clear to auscultation. ABDOMEN: Flat, soft with positive bowel sounds. EXTREMITIES: No peripheral edema. Pulses are +2 bilaterally. LABORATORY DATA: Her thyroid study showed a T4 of 3.7 with a TSH of 10.40. Chemistries: BUN of 38, sodium 144, potassium 5.2, chloride 104, CO2 of 30, glucose 93 and creatinine 2. Her proBNP is 1090. Her CAT scan of the head showed presence of the suprasellar mass measuring 3.5 x 3.8 and 3.6 cm with round dimensions and the diagnostic possibilities are a possible meningioma and/or a craniopharyngioma or aneurysm. ASSESSMENT: This is an 82-year-old female with early hypothyroidism, which is really an incidental finding and quite common in the elderly, most likely related to autoimmune thyroiditis. She also has an incidental finding of a suprasellar mass, again the possibility of a chronic brain lesion, i.e. a meningioma could be the most likely. Also, they are trying to exclude other suprasellar masses such as an aneurysm or craniopharyngioma. PLAN OF MANAGEMENT: We will concur with the comprehensive hormonal profile as ordered and we will add an ACTH and growth hormone level besides the initially ordered cortisol, LH, FSH and prolactin levels as noted. From the endocrine view point, this is not a pituitary mass, but this is above the sellar area in the suprasellar area as noted. We will continue also the levothyroxine given as 25 mcg once daily in the morning and we will titrate incrementally as indicated to optimize metabolic control. We will obtain serial chemistries and supplement accordingly as needed. We will also obtain a thyroid peroxidase and thyroglobulin antibody to confirm and/or indicate the presence of underlying thyroid autoimmunity, i.e. Olu's thyroiditis. We will follow. Tracy Henning MD
--- NOTE | 2018-03-09 15:56 | MRI ---
Date of service: 03/09/2018 PROCEDURE: Magnetic Resonance Angiography Brain HISTORY: aneurysm COMPARISON: None available. TECHNIQUE: 3D time of flight MR angiography of the intracranial arteries was performed. Rotating maximum intensity projection images were generated. FINDINGS: INTERNAL CAROTID ARTERIES: Normal flow related signal. The skull base, petrous, cavernous and supraclinoid segments are bilaterally widely patient. ANTERIOR CEREBRAL ARTERIES: Normal flow related signal. A1 and A2 segments are widely patent. Smaller distal branches unremarkable, as visualized. MIDDLE CEREBRAL ARTERIES: Normal flow related signal. M1 and M2 segments are widely patent. Perisylvian branches grossly symmetric. POSTERIOR CIRCULATION: Basilar Artery: Normal flow related signal. Distal Vertebral Arteries: Normal flow related signal. Posterior Cerebral Arteries: Normal flow related signal. Posterior Inferior Cerebellar Arteries: Normal flow related signal. ANEURYSM/ VASCULAR MALFORMATIONS: None. OTHER FINDINGS: None. IMPRESSION: Normal MR angiography of the brain.
[2018-03-09 16:37] VITALS: O2SAT 95
--- NOTE | 2018-03-09 16:47 | MRI ---
Date of service: 03/09/2018 PROCEDURE: MRI BRAIN WITHOUT CONTRAST HISTORY: tumor COMPARISON: None available. TECHNIQUE: Multiplanar, multisequence MR images of the brain were obtained without intravenous contrast enhancement. FINDINGS: HEMORRHAGE: None DWI: No evidence of an acute or early subacute infarction. BRAIN PARENCHYMA: There is a 3.5 x 3.7 x 4.0 cm T1 hypo intense and T2/ FLAIR Iso intense sellar and suprasellar mass. There is expansion of the sella turcica and the pituitary gland is not distinctly identified. The infundibulum and optic rosa as arm are also not distinctly identified. There arm normal signal voids in the cavernous carotid artery is. There are moderate chronic microangiopathic changes. There is no abnormal extra-axial fluid collection. There is no territorial infarction. The midline sagittal structures are normal. VENTRICLES: There is mild age-related global parenchymal volume loss and proportionate enlargement of the ventricles and cortical sulci. CRANIUM: There is normal bone marrow signal pattern. ORBITS: Grossly unremarkable. PARANASAL SINUSES/MASTOIDS: Predominantly clear. VASCULAR SYSTEM: There are normal signal voids in the larger intracranial arteries. OTHER FINDINGS: None. IMPRESSION: 1. 3.5 x 3.7 x 4.0 cm sellar and suprasellar mass. Definitive characterization is limited in the absence of intravenous contrast. Allowing for this, the differential considerations include meningioma, Rathke's cleft cyst and less likely germ cell tumor, macroadenoma and craniopharyngioma. 2. Moderate chronic microangiopathic changes and mild age-related global parenchymal volume loss.
[2018-03-09] MEDS: Sodium Chloride 0.9% 1,000 ML IV SCH (21:03)
[2018-03-10] MEDS: Levothyroxine 25 MCG TAB PO SCH (05:10)
[2018-03-10] MEDS: Pantoprazole 40 mg EC Tab PO SCH (05:10)
[2018-03-10 06:47] LABS: BASO # 0.01 K/mm3 (0.0-2.0); BASO % 0.1 % (0.0-3.0); GRAN # 12.88 (1.4-6.5); GRAN % 87.8 % (50.0-68.0); HEMOGLOBIN 12.7 g/dL (12.0-16.0); LYMPH # 1.6 (1.2-3.4); LYMPH % 10.7 % (22.0-35.0); MEAN CELL VOLUME 90.7 fl (80.0-105.0); MEAN CORPUSCULAR HEMOGLOBIN 31.2 pg (25.0-35.0); MEAN CORPUSCULAR HGB CONC 34.4 g/dl (31.0-37.0); MEAN PLATELET VOLUME 10.3 fl (7.0-11.0); MONO # 0.2 (0.1-0.6); MONO % 1.4 % (1.0-6.0); RBC 4.07 10^6/uL (3.5-6.1); RED CELL DISTRIBUTION WIDTH 13.6 % (11.5-14.5); WHITE BLOOD COUNT 14.7 10^3/ul (4.5-11.0)
[2018-03-10 07:14] LABS: ALB/GLOB RATIO 0.9 (1.1-1.8); ALBUMIN 3.8 g/dL (3.0-4.8); CALCIUM 10.1 mg/dL (8.4-10.5)
[2018-03-10 07:16] LABS: FREE T4 0.58 ng/dL (0.78-2.19); T4 3.9 ug/dL (5.5-11.0)
--- NOTE | 2018-03-10 10:01 | CP.PCM.PN ---
Subjective - Date & Time of Evaluation Date of Evaluation: 03/10/18 Time of Evaluation: 09:56 - Subjective Subjective: Endocrinology progress note for Dr. Henning's service - Vince Rahman PGY3 Patient seen and examined at bedside this morning. No acute overnight events or new complaints reported. Denies cp, palpitations, SOB. Objective - Vital Signs/Intake and Output Vital Signs (last 24 hours): Temp Pulse Resp BP Pulse Ox 97.4 F L 72 20 149/86 95 03/10/18 07:58 03/10/18 07:58 03/10/18 07:58 03/10/18 07:58 03/10/18 07:58 Intake and Output: 03/10/18 03/10/18 06:59 18:59 Intake Total 220 Balance 220 - Medications Medications: Current Medications Amlodipine Besylate (Norvasc) 5 mg PO DAILY [facility] Last Admin: 03/09/18 10:40 Dose: 5 mg Aspirin (Ecotrin) 81 mg PO DAILY [facility] Last Admin: 03/09/18 09:11 Dose: 81 mg Dexamethasone (Decadron Inj) 2 mg IVP Q12 [facility] Last Admin: 03/09/18 21:04 Dose: 2 mg Heparin Sodium (Porcine) (Heparin) 5,000 units SC Q12 [facility] PRN Reason: Protocol Last Admin: 03/09/18 21:12 Dose: Not Given Sodium Chloride (Sodium Chloride 0.9%) 1,000 mls @ 100 mls/hr IV .Q10H [facility] Last Admin: 03/09/18 21:03 Dose: 100 mls/hr Levothyroxine Sodium (Synthroid) 25 mcg PO 0600 [facility] Last Admin: 03/10/18 05:10 Dose: 25 mcg Nitroglycerin (Nitrostat Sl Tab) 0.4 mg SL Q5M PRN PRN Reason: Pain, moderate (4-7) Pantoprazole Sodium (Protonix Ec Tab) 40 mg PO 0600 [facility] Last Admin: 03/10/18 05:10 Dose: 40 mg - Labs Labs: 03/10/18 06:20 03/10/18 06:20 PT 12.5 SECONDS (9.4-12.5) 03/08/18 21:45 INR 1.09 03/08/18 21:45 APTT 33.1 Seconds (25.1-36.5) 03/08/18 21:45 - Constitutional Appears: No Acute Distress - Head Exam Head Exam: ATRAUMATIC, NORMAL INSPECTION, NORMOCEPHALIC - Eye Exam Eye Exam: EOMI Pupil Exam: PERRL - ENT Exam ENT Exam: Mucous Membranes Moist - Respiratory Exam Respiratory Exam: absent: Rales, Rhonchi, Wheezes - Cardiovascular Exam Cardiovascular Exam: +S1, +S2. absent: Gallop, Rubs - GI/Abdominal Exam GI & Abdominal Exam: Soft. 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 -CT Head/Brain MRI were reviewed -ACTH, GH, Thyroglobulin, Thyroperoxidase pending -Prolactin level of 129.2 noted -Continue synthroid 25mcg as ordered for hypothyroidism -Continue current medical management as per primary/neurology recommendations Patient seen and case to be discussed/reviewed with attending, Dr. Henning
--- NOTE | 2018-03-10 10:04 | US ---
Date of service: 03/10/2018 PROCEDURE: Ultrasound of the Kidneys HISTORY: HANNAH COMPARISON: None available. TECHNIQUE: Sonogram of the kidneys. FINDINGS: RIGHT KIDNEY: Measures: cm. Normal in size, contour and echogenicity. No stone, solid mass lesion or hydronephrosis visualized. LEFT KIDNEY: Measures: cm. Normal in size, contour and echogenicity. No stone, solid mass lesion or hydronephrosis visualized. OTHER FINDINGS: Scattered bilateral renal cysts the largest measuring 3.4 centimeters in the left upper pole. IMPRESSION: Scattered bilateral renal cysts the largest measuring 3.4 centimeters in the left upper pole.
[2018-03-10] MEDS: Dexamethasone 4 mg/1 ml IVP SCH (10:08)
--- NOTE | 2018-03-10 12:34 | CP.PCM.PN ---
Subjective - Date & Time of Evaluation Date of Evaluation: 03/10/18 Time of Evaluation: 12:32 - Subjective Subjective: Nephrology Consultation Note: Assessment: Stable Acute Kidney Injury (N17.9) likely due to pre-renal state" improved Hypertensive Chronic Kidney Disease (I12.9) Chronic Kidney Disease (N18.3) Stage 3 with ? mg proteinuria (R80.9) likely due to HTN/age related decline hypercalcemia, hyperkalemia supra-sellar mass active smoker Plan No acute need for renal replacement therapy at this time. Hypertension control with meds as ordered. Maintain hemodynamics stable. Avoid hypotension. Patient not on ACEI/ARB due to recent HANNAH and hyperkalemia. continue with norvasc Monitor Input/Output, daily weights and renal function with basic metabolic panel can d/c IVF soon hold thiazide diuretics neurology, endocrine following, work up for supra-sellar mass as per neuro Check urine analysis, spot protein/creatinine, albumin/creatinine ratio Check for 25-OH vitamin D, iPTH, PTH-rp, phosphorus level. Dose meds/antibiotics for improved GFR. Avoid nephrotoxins/NSAIDs Glycemic control, smoking cessation Further work up/management as per primary team pt stable for d/c from renal perspective when planned with outpt renal follow up 1-2 weeks Thanks for allowing me to participate in care of your patient. Please call if any Qs. d/w team and family Dr Karan Camarena Office: [phone] Chief Complaint; headache Reason for consult: Acute Kidney Injury HPI: Pt is a 82 F with hx of hypertension (years) active smoker, memory impairment presented with complaints of headache and found to have suprasellar mass. renal consult for elevated cr.daughter says she was told 2 months ago about kidneys but she doesn't remember what was mentioned. pt lives with daughter and had low appetite with decreased oral intake Denies OTC/herbal meds or NSAIDs No recent iodinated contrast exposure. Noted obvious episodes of low BP (98/64). ROS: grand-son bedside and as per him, pt doing well. no new complaints Cardiovascular: No chest pain. Pulmonary: No shortness of breath Gastrointestinal: denies abdominal pain No nausea. No vomiting. Genitourinary: No pain while urinating. Denies blood in urine. All other negative except as mentioned in HPI. limited from pt Physical Examination: General Appearance: Comfortable, in no acute respiratory distress, co-operative . Vitals reviewed and noted as below Head; Atraumatic, normocephalic ENT: no ulcers no thrush. Tongue is midline. Oropharynx: no rash or ulcers. EYES: Pupils are equal, round and reactive to light accommodation. Sclera is anicteric. Neck; supple no lymphadenopathy, no thyromegaly or bruit Lungs: Normal respiratory rate/effort. Breath sounds bilateral equal and clear Heart: Normal rate. s1s2 normal. No rub or gallop. Extremities: no edema. No varicose veins Neurological: Patient is alert, awake and oriented to person, place and time. Strength bilateral appropriate and equal Skin: Warm and dry. Normal turgor. No rash. Palpitation: Normal elasticity for age Abdomen: Abdomen is soft. Bowel sounds +. There is no abdominal tenderness, no guarding/rigidity no organomegaly Psych: lack insight and normal affect/mood MSK: no joint tenderness or swelling. Digits and nails normal, no deformity : kidney or bladder not palpable Labs/imaging reviewed. Past medical history, past surgical history, family history, social history, allergy reviewed and noted as below Family hx: no hx of CKD. Rest non-contributory renal imaguing: Rt kidney 4 cm simple cyst Objective - Vital Signs/Intake and Output Vital Signs (last 24 hours): Temp Pulse Resp BP Pulse Ox 97.4 F L 72 20 149/86 95 03/10/18 07:58 03/10/18 10:07 03/10/18 07:58 03/10/18 10:07 03/10/18 07:58 Intake and Output: 03/10/18 03/10/18 06:59 18:59 Intake Total 220 Balance 220 - Medications Medications: Current Medications Amlodipine Besylate (Norvasc) 5 mg PO DAILY [facility] Last Admin: 03/10/18 10:07 Dose: 5 mg Aspirin (Ecotrin) 81 mg PO DAILY [facility] Last Admin: 03/10/18 10:07 Dose: 81 mg Dexamethasone (Decadron Inj) 2 mg IVP Q12 [facility] Last Admin: 03/10/18 10:08 Dose: 2 mg Heparin Sodium (Porcine) (Heparin) 5,000 units SC Q12 [facility] PRN Reason: Protocol Last Admin: 03/10/18 10:07 Dose: 5,000 units Sodium Chloride (Sodium Chloride 0.9%) 1,000 mls @ 100 mls/hr IV .Q10H [facility] Last Admin: 03/09/18 21:03 Dose: 100 mls/hr Levothyroxine Sodium (Synthroid) 25 mcg PO 0600 [facility] Last Admin: 03/10/18 05:10 Dose: 25 mcg Nitroglycerin (Nitrostat Sl Tab) 0.4 mg SL Q5M PRN PRN Reason: Pain, moderate (4-7) Pantoprazole Sodium (Protonix Ec Tab) 40 mg PO 0600 [facility] Last Admin: 03/10/18 05:10 Dose: 40 mg - Labs Labs: 03/10/18 06:20 03/10/18 06:20 PT 12.5 SECONDS (9.4-12.5) 03/08/18 21:45 INR 1.09 03/08/18 21:45 APTT 33.1 Seconds (25.1-36.5) 03/08/18 21:45
--- NOTE | 2018-03-10 14:14 | PN ---
Copied To: Aric Hernández MD Attending MD: Aric Hernández MD DATE: 03/10/2018 SUBJECTIVE: The patient denies chest pain at this time. She is comfortable with her grandson at the bedside. OBJECTIVE: VITAL SIGNS: Blood pressure 149/86, heart rate 72, temperature 97.4, respiration 20. HEENT: Normocephalic. CHEST: Clear. HEART: Sounds regular. EXTREMITIES: No edema. LABORATORY DATA: SMA-7 is within normal limits except for BUN of 35. Three sets of troponins are negative. Hemoglobin max is 12.7 and 36.9, white count 14.7, platelet count of 315,000. Abdomen and pelvis CT scan without contrast, no acute chest, abdomen or pelvic abnormality. ____, normal MR angiography of the brain. Brain MRI without contrast, 3.5 x 3.7 x 4 cm sellar and suprasellar mass. Definitive characterization is limited in the absence of intravenous contrast. Differential considerations include meningioma, Rathke's cleft cyst and less likely, giant cell tumor, macroadenoma or craniopharyngioma. Mild chronic microangiopathic changes. 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 ASSESSMENT: 1. Hypertension. 2. Brain mass, rule out increased intracranial tension in view of headache on presentation. 4. 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 RECOMMENDATIONS: Continue current aspirin 81 mg once a day, subcutaneous heparin 5000 units every 12 hours, Norvasc at 5 mg once a day, Synthroid 25 mcg once a day. I would review the echocardiac study performed today and followup renal ultrasound. Aric Hernández MD
--- NOTE | 2018-03-10 18:12 | CP.PCM.PN ---
<Man Colindres - Last Filed: 03/10/18 18:06> Subjective - Date & Time of Evaluation Date of Evaluation: 03/10/18 Time of Evaluation: 07:00 - Subjective Subjective: Man Colindres PGY1 Progress Note for Dr. Gtz Patient was seen and examined at bedside this morning. Persian translation was provided by family member at bedside. Patient's headaches are on and off. Patient denied dizziness, lightheadedness, chest pain, shortness of breath, abdominal pain, nausea, vomiting, diarrhea. Patient still has tenderness around her shoulder. Vital signs stable. No changes overnight. A full 12 point ROS was conducted and unremarkable except as stated above. Objective - Vital Signs/Intake and Output Vital Signs (last 24 hours): Temp Pulse Resp BP Pulse Ox 98.2 F 73 20 134/68 95 03/10/18 16:31 03/10/18 16:31 03/10/18 16:31 03/10/18 16:31 03/10/18 16:31 Intake and Output: 03/10/18 03/10/18 06:59 18:59 Intake Total 220 Balance 220 - Medications Medications: Current Medications Amlodipine Besylate (Norvasc) 5 mg PO DAILY [facility] Last Admin: 03/10/18 10:07 Dose: 5 mg Aspirin (Ecotrin) 81 mg PO DAILY [facility] Last Admin: 03/10/18 10:07 Dose: 81 mg Bromocriptine Mesylate (Parlodel) 5 mg PO HS [facility] Dexamethasone (Decadron Inj) 2 mg IVP DAILY [facility] Heparin Sodium (Porcine) (Heparin) 5,000 units SC Q12 [facility] PRN Reason: Protocol Last Admin: 03/10/18 10:07 Dose: 5,000 units Sodium Chloride (Sodium Chloride 0.9%) 1,000 mls @ 100 mls/hr IV .Q10H [facility] Last Admin: 03/09/18 21:03 Dose: 100 mls/hr Levothyroxine Sodium (Synthroid) 25 mcg PO 0600 [facility] Last Admin: 03/10/18 05:10 Dose: 25 mcg Nitroglycerin (Nitrostat Sl Tab) 0.4 mg SL Q5M PRN PRN Reason: Pain, moderate (4-7) Pantoprazole Sodium (Protonix Ec Tab) 40 mg PO 0600 [facility] Last Admin: 03/10/18 05:10 Dose: 40 mg - Labs Labs: 03/10/18 06:20 03/10/18 06:20 PT 12.5 SECONDS (9.4-12.5) 03/08/18 21:45 INR 1.09 03/08/18 21:45 APTT 33.1 Seconds (25.1-36.5) 03/08/18 21:45 - Constitutional Appears: Well, No Acute Distress - Head Exam Head Exam: ATRAUMATIC, NORMAL INSPECTION, NORMOCEPHALIC - Eye Exam Eye Exam: EOMI, PERRL Pupil Exam: NORMAL ACCOMODATION, PERRL Additional comments: R-eye blindness. - ENT Exam ENT Exam: Mucous Membranes Moist, Normal Exam - Neck Exam Neck Exam: Full ROM, Normal Inspection. absent: Lymphadenopathy - Respiratory Exam Respiratory Exam: Clear to Ausculation Bilateral, NORMAL BREATHING PATTERN - Cardiovascular Exam Cardiovascular Exam: REGULAR RHYTHM, +S1, +S2. absent: Murmur - GI/Abdominal Exam GI & Abdominal Exam: Soft, Normal Bowel Sounds. absent: Tenderness - Extremities Exam Extremities Exam: Full ROM, Normal Capillary Refill, Normal Inspection. absent : Joint Swelling, Pedal Edema - Back Exam Back Exam: NORMAL INSPECTION - Neurological Exam Neurological Exam: Alert, Awake, Oriented x3 Neuro motor strength exam: Left Upper Extremity: 5, Right Upper Extremity: 5, Left Lower Extremity: 5, Right Lower Extremity: 5 - Skin Skin Exam: Dry, Intact, Normal Color, Warm Assessment and Plan - Assessment and Plan (Free Text) Assessment: Patient is a 82 y/o F with PMHX of R-eye blindness, supracellular mass, HTN, RA , and extensive smoking history who presented to ED for x5 days of headache radiating to the left shoulder. On imaging, patient found to have an old supracellular mass. Neurosurgery was consulted and said that surgical removal of mass can be treated as outpatient. Patient is being managed on the floor. 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 Moderate chronic microangiopathic changes and mild age related global parenchymal volume loss. - Head MRA (03/09): normal MR angio of the brain. - c/w pain control - Prolactin 129 - Negative FSH/LH - Normal cortisol AM - Prolactin 129 - Negative FSH/LH - f/u Endo recs; started on bromocriptine 5 qHS - Hypercalcemia resolved Hypothyroidism - Newly diagnosed - started on synthroid 25 mg - TSH 10.4/ T4 .58 - Prolactin 129 - Negative FSH/LH - f/u Endo recs HANNAH - BUN/Cr is trending down, 35/1.2 (03/10) - f/u nephro recs; avoid nephrotoxic agents - Renal US: bilateral renal cysts - PTH 118 - Vitamin D 36.7 - UA: positive protein, mod blood, trace LE, trace granular casts - UCx: negative Atypical chest pain - resolved - f/u official Echo read - EKG: Normal sinus rhythm, HR: 95 - Troponins negative x3 - BNP 1090 - c/w ASA, nitro, motrin for pain control - f/u cardio recs Leukocytosis likely 2/2 stress and not infectious etiology - wbc 14.7 (03/10) - Does not meet SIRS criteria - procal negative DVT prophylaxis: heparin 5000 U subq daily GI prophylaxis: protonix 40 mg daily Case was discussed and reviewed with Dr. Gtz. <Noy Gtz - Last Filed: 03/11/18 12:09> Objective - Vital Signs/Intake and Output Vital Signs (last 24 hours): Temp Pulse Resp BP Pulse Ox 97.4 F L 60 20 137/66 95 03/11/18 08:10 03/11/18 11:18 03/11/18 08:10 03/11/18 11:18 03/11/18 08:10 Intake and Output: 03/11/18 03/11/18 06:59 18:59 Intake Total 3480 Balance 3480 - Medications Medications: Current Medications Amlodipine Besylate (Norvasc) 5 mg PO DAILY [facility] Last Admin: 03/11/18 11:18 Dose: 5 mg Aspirin (Ecotrin) 81 mg PO DAILY [facility] Last Admin: 03/11/18 11:18 Dose: 81 mg Bromocriptine Mesylate (Parlodel) 5 mg PO HS [facility] Last Admin: 03/10/18 21:49 Dose: 5 mg Dexamethasone (Decadron Inj) 2 mg IVP DAILY [facility] Last Admin: 03/11/18 11:18 Dose: 2 mg Heparin Sodium (Porcine) (Heparin) 5,000 units SC Q12 [facility] PRN Reason: Protocol Last Admin: 03/11/18 11:18 Dose: 5,000 units Levothyroxine Sodium (Synthroid) 25 mcg PO 0600 [facility] Last Admin: 03/11/18 05:47 Dose: 25 mcg Nitroglycerin (Nitrostat Sl Tab) 0.4 mg SL Q5M PRN PRN Reason: Pain, moderate (4-7) Pantoprazole Sodium (Protonix Ec Tab) 40 mg PO 0600 [facility] Last Admin: 03/11/18 05:47 Dose: 40 mg - Labs Labs: 03/11/18 06:00 03/11/18 06:00 PT 12.5 SECONDS (9.4-12.5) 03/08/18 21:45 INR 1.09 03/08/18 21:45 APTT 33.1 Seconds (25.1-36.5) 03/08/18 21:45 Attending/Attestation - Attestation I have personally seen and examined this patient.: Yes I have fully participated in the care of the patient.: Yes I have reviewed all pertinent clinical information, including history, physical exam and plan: Yes Notes (Text): Patient seen and examined by me at 11:40AM with resident 03/10/18. Case including HPI, physical exam, and assessment and plan discussed with resident. Agree with above with following additions/corrections. Patient is a 82 year old female with past medical history significant for right eye blindness, hypertension, kidney disease, and tobacco abuse that presented to the emergency room with headahce and left arm pain. Patient states he is feeling much better today. Headache improved. Left arm pain improved. Patient states she is trying to stop smoking. No chest pain or shorntess of breath. No dizziness. No fevers or chills. No nausea, vomiting, or abdominal pain. No dysuria. Physical exam: General: Awake and alert, lying in bed in no acute distress HEENT: Normocephalic, atraumatic. Extraocular muscles intact. Positive right eye blindness. No scleral icterus. Oropharynx is pink and moist. Neck is supple. Cardiovascular: Normal rhythm. Normal S1, S2. No murmurs, rubs, or gallops appreciated Pulmonary: Normal respiratory effort. No rhonchi, rales or wheezing appreciated. Gastrointestinal: Soft, nondistended. Nontender. Positive bowel sounds all 4 quadrants, no guarding. Musculoskeletal: Normal range of motion all extremities, no calf tenderness, no edema appreciated. Central nervous system: CN2-12 grossly intact. AAO x 3 Dermatologic: Skin warm and dry Assessment and plan: Patient is a 82 year old female with past medical history significant for right eye blindness, hypertension, kidney disease, and tobacco abuse that presented to the emergency room with headahce and left arm pain. 1. Headaches secondary to a suprasellar mass. CT head per radiologist showed 3.5 x 3.8 x 3.6 cm around suprasellar mass. Brain MRI per radiologist showed 3.5 x 3.7 x 4 cm sellar and suprasellar mass; moderate chronic microangiopathic changes and mild age-related global parenchymal volume loss. Head MRA per radiologist shows normal MR angiography of the brain. CT abdomen/pelvis/chest shows no metastatic lesions. Neurology following, recommendations appreciated. Neurosurgery following, recommendations appreciated. Continue Decadron. Per neurosurgery, patient to be referred to the office for follow-up and surgical decision making. 2. HANNAH. Likely secondary to dehydration. Improving. Continue with IV fluids. Renal ultrasound per radiologist shows scattered bilateral renal cyst, the largest measuring 3.4 cm in the left upper pole. Nephrology following, recommendations appreciated. 3. Chest pain. Resolved. ACS ruled out. Troponins within normal limits. 2-D echo per online marketing strategist shows left ventricle is normal size, borderline to mild concentric left ventricular hypertrophy, left ventricular function is normal, aortic valve is mildly to moderately calcified, aortic sclerosis (please see official read for full details). Cardiology following, recommendations appreciated. Continue aspirin. 4. Hypothyroidism. Continue with Synthroid. Endocrinology following, recommendations appreciated. 5. Elevated prolactin. Likely secondary to suprasellar mass compression. Started on bromocriptine. Endocrinology following, recommendations appreciated. 6. Leukocytosis. No signs of infection. Likely secondary to steroids. Continue to monitor. 7. Essential hypertension. Continue Norvasc. Case was discussed in detail with patient and patient's family at bedside regarding current diagnosis and treatment plan.
[2018-03-10] MEDS: Sodium Chloride 0.9% 1,000 ML IV SCH (20:13)
--- NOTE | 2018-03-10 21:15 | PN ---
Copied To: Tracy Henning MD Attending MD: Tracy Henning MD DATE: 03/10/2018 ENDOCRINOLOGY FOLLOWUP NOTE LOCATION: In room 360. SUBJECTIVE: This is an 82-year-old female, presenting here with headaches and evaluated to have large suprasellar mass lesion and also concomitant early hypothyroidism and started on levothyroxine replacement therapy as given and tolerated. Her chemistry showed a BUN of 35, sodium 139, potassium 4.8, chloride 105, CO2 of 23, glucose 98, and creatinine 1.2. Her TSH was actually not done, but the T4 is 3.9 with a free T4 of 0.58 and the initial TSH was 10.4. Her prolactin level was reported as 129.2. 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 The most likely etiology for the elevated prolactin level in a patient with a suprasellar mass lesion is actually a compression of the hypothalamic pituitary stalk or axis causing rebound elevation of the prolactin levels as noted. PLAN OF MANAGEMENT: We will add bromocriptine given as 5 mg at bedtime to start tonight and we will titrate incrementally as tolerated to optimize the metabolic response thereof. We will continue the levothyroxine given as 25 mcg daily and we will titrate incrementally as indicated to optimize metabolic control. We will follow and advise accordingly. Tracy Henning MD
[2018-03-11] MEDS: Levothyroxine 25 MCG TAB PO SCH (05:47)
[2018-03-11] MEDS: Pantoprazole 40 mg EC Tab PO SCH (05:47)
[2018-03-11 06:45] LABS: BASO # 0.02 K/mm3 (0.0-2.0); BASO % 0.1 % (0.0-3.0); EOS % 0.1 % (1.5-5.0); GRAN # 12.54 (1.4-6.5); GRAN % 78.8 % (50.0-68.0); HEMOGLOBIN 11.8 g/dL (12.0-16.0); LYMPH # 2.8 (1.2-3.4); LYMPH % 17.4 % (22.0-35.0); MEAN CELL VOLUME 89.4 fl (80.0-105.0); MEAN CORPUSCULAR HEMOGLOBIN 30.6 pg (25.0-35.0); MEAN CORPUSCULAR HGB CONC 34.2 g/dl (31.0-37.0); MEAN PLATELET VOLUME 10.4 fl (7.0-11.0); MONO # 0.6 (0.1-0.6); MONO % 3.6 % (1.0-6.0); RBC 3.86 10^6/uL (3.5-6.1); RED CELL DISTRIBUTION WIDTH 13.6 % (11.5-14.5); WHITE BLOOD COUNT 15.9 10^3/ul (4.5-11.0)
[2018-03-11 06:50] LABS: ALB/GLOB RATIO 0.9 (1.1-1.8); ALBUMIN 3.2 g/dL (3.0-4.8)
[2018-03-11 06:59] LABS: T4 3.3 ug/dL (5.5-11.0)
--- NOTE | 2018-03-11 08:04 | CARD ---
APPROVED REPORT Date of service: 03/10/2018 EXAM: Two-dimensional and M-mode echocardiogram with Doppler and color Doppler. Other Information Quality : AverageRhythm : INDICATION Chest Pain 2D DIMENSIONS Left Atrium (2D)3.1 (1.6-4.0cm)IVSd1.2 (0.7-1.1cm) LVDd3.0 (3.9-5.9cm)PWd1.2 (0.7-1.1cm) LVDs2.0 (2.5-4.0cm)FS (%) 31.9 % LVEF (%)61.0 (>50%) M-Mode DIMENSIONS Aortic Root2.60 (2.2-3.7cm)Aortic Cusp Exc.1.70 (1.5-2.0cm) Aortic Valve AoV Peak Kdoxnomf282.0cm/Priscilla Peak GR.8mmHg Mitral Valve MV E Gyivanxv76.9cm/sMV A Qajegmof353.0cm/sE/A ratio0.7 TDI E/Lateral E'0.0E/Medial E'0.0 Tricuspid Valve TR Peak [id number] [id number] Peak Gr.29mmHg [id number] LEFT VENTRICLE The left ventricle is normal size. There is borderline to mild concentric left ventricular hypertrophy. The left ventricular function is normal. The left ventricular ejection fraction is within the normal range. There is normal LV segmental wall motion. RIGHT VENTRICLE The right ventricle is normal size. ATRIA The left atrium size is normal. The right atrium size is normal. The interatrial septum is intact with no evidence for an atrial septal defect. AORTIC VALVE The aortic valve is mildly to moderately calcified. MITRAL VALVE The mitral valve is normal in structure. TRICUSPID VALVE The tricuspid valve is normal in structure. There is mild tricuspid regurgitation. PULMONIC VALVE The pulmonic valve is not well visualized. GREAT VESSELS The aortic root is normal in size. PERICARDIAL EFFUSION There is no pericardial effusion. <Conclusion> The left ventricle is normal size. There is borderline to mild concentric left ventricular hypertrophy. The left ventricular function is normal. The aortic valve is mildly to moderately calcified. Aortic sclerosis. There is mild tricuspid regurgitation.
[2018-03-11 08:11] VITALS: BP 137/66; TEMP 97.4
--- NOTE | 2018-03-11 09:04 | CP.PCM.PN ---
Subjective - Date & Time of Evaluation Date of Evaluation: 03/11/18 Time of Evaluation: 09:01 - Subjective Subjective: Endocrinology progress note for Dr. Juvencio Rahman PGY3 Patient seen and examined at bedside this morning. No acute overnight events or new complaints reported. Denies chest pain, palpitations, SOB. Objective - Vital Signs/Intake and Output Vital Signs (last 24 hours): Temp Pulse Resp BP Pulse Ox 97.4 F L 57 L 20 137/66 95 03/11/18 08:10 03/11/18 08:10 03/11/18 08:10 03/11/18 08:10 03/11/18 08:10 Intake and Output: 03/11/18 03/11/18 06:59 18:59 Intake Total 3480 Balance 3480 - Medications Medications: Current Medications Amlodipine Besylate (Norvasc) 5 mg PO DAILY [facility] Last Admin: 03/10/18 10:07 Dose: 5 mg Aspirin (Ecotrin) 81 mg PO DAILY [facility] Last Admin: 03/10/18 10:07 Dose: 81 mg Bromocriptine Mesylate (Parlodel) 5 mg PO HS [facility] Last Admin: 03/10/18 21:49 Dose: 5 mg Dexamethasone (Decadron Inj) 2 mg IVP DAILY [facility] Heparin Sodium (Porcine) (Heparin) 5,000 units SC Q12 [facility] PRN Reason: Protocol Last Admin: 03/10/18 21:49 Dose: 5,000 units Sodium Chloride (Sodium Chloride 0.9%) 1,000 mls @ 100 mls/hr IV .Q10H [facility] Last Admin: 03/10/18 20:13 Dose: 100 mls/hr Levothyroxine Sodium (Synthroid) 25 mcg PO 0600 [facility] Last Admin: 03/11/18 05:47 Dose: 25 mcg Nitroglycerin (Nitrostat Sl Tab) 0.4 mg SL Q5M PRN PRN Reason: Pain, moderate (4-7) Pantoprazole Sodium (Protonix Ec Tab) 40 mg PO 0600 [facility] Last Admin: 03/11/18 05:47 Dose: 40 mg - Labs Labs: 03/11/18 06:00 03/11/18 06:00 PT 12.5 SECONDS (9.4-12.5) 03/08/18 21:45 INR 1.09 03/08/18 21:45 APTT 33.1 Seconds (25.1-36.5) 03/08/18 21:45 - Constitutional Appears: No Acute Distress - Head Exam Head Exam: ATRAUMATIC, NORMAL INSPECTION, NORMOCEPHALIC - Eye Exam Eye Exam: EOMI Pupil Exam: PERRL - ENT Exam ENT Exam: Mucous Membranes Moist - Respiratory Exam Respiratory Exam: absent: Rales, Rhonchi, Wheezes - Cardiovascular Exam Cardiovascular Exam: +S1, +S2. absent: Clicks, Gallop, Rubs - GI/Abdominal Exam GI & Abdominal Exam: Soft. absent: Distended, Firm, Guarding, Rigid, Tenderness , Rebound - Extremities Exam Extremities Exam: absent: Pedal Edema - Back Exam Back Exam: NORMAL INSPECTION. 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 -CT Head/Brain MRI were reviewed -ACTH, GH, Thyroglobulin, Thyroperoxidase pending -Prolactin level of 129.2 noted -Continue synthroid 25mcg as ordered for hypothyroidism -She was started on bromocriptine 5mg PO HS; likely compression of mass on HPA axis -Continue current medical management as per primary/neurology recommendations\ -Recommend outpatient follow up with her PMD upon discharge Patient seen and case to be discussed/reviewed with attending, Dr. Henning
--- NOTE | 2018-03-11 09:50 | PN ---
Copied To: Tracy Henning MD Attending MD: Tracy Henning MD DATE: 03/11/2018 ENDO FOLLOWUP NOTE LOCATION: In room 360. SUBJECTIVE: This is an 82-year-old female, admitted with progressive bouts of dizziness and lightheadedness and bifrontal headaches and is now being followed closely for metabolic management. She also had an incidental finding of a large suprasellar mass lesion and a comprehensive hormonal profile was also undertaken at this time. Her prolactin levels were reported as elevated with a value of 129.2. Her LH was less than 7.2 with an FSH of 12. Her TSH is 10.4 with a T4 of 3.7. So at this time, we will continue the bromocriptine given as 5 mg at bedtime and we will titrate incrementally as indicated to optimize metabolic control. This is most likely a compression effect on the hypothalamic pituitary by the suprasellar mass lesion causing the aforementioned. Her pituitary gland has been reported as normal size by the MRI. We will obtain serial prolactin levels as indicated. We will also continue the levothyroxine given as 25 mcg once daily and we will repeat the thyroid studies and titrate her dose regimen accordingly. We will follow. Tracy Henning MD
[2018-03-11] MEDS ORDERED: Dexamethasone 4 mg/1 ml IVP SCH (10:00)
[2018-03-11 11:28] VITALS: PULSE 60
--- NOTE | 2018-03-11 12:11 | CP.PCM.PN ---
Subjective - Date & Time of Evaluation Date of Evaluation: 03/11/18 Time of Evaluation: 12:11 - Subjective Subjective: ephrology Consultation Note: Assessment: Stable Acute Kidney Injury (N17.9) likely due to pre-renal state" improved Hypertensive Chronic Kidney Disease (I12.9) Chronic Kidney Disease (N18.3) Stage 3 with ? mg proteinuria (R80.9) likely due to HTN/age related decline hypercalcemia, hyperkalemia supra-sellar mass active smoker Plan No acute need for renal replacement therapy at this time. Hypertension control with meds as ordered. Maintain hemodynamics stable. Avoid hypotension. Patient not on ACEI/ARB due to recent HANNAH and hyperkalemia. continue with norvasc Monitor Input/Output, daily weights and renal function with basic metabolic panel d/c IVF today hold thiazide diuretics neurology, endocrine following, work up for supra-sellar mass as per neuro Check urine analysis, spot protein/creatinine, albumin/creatinine ratio Check for 25-OH vitamin D, iPTH, PTH-rp, phosphorus level. Dose meds/antibiotics for improved GFR. Avoid nephrotoxins/NSAIDs Glycemic control, smoking cessation Further work up/management as per primary team pt stable for d/c from renal perspective when planned with outpt renal follow up 1-2 weeks Thanks for allowing me to participate in care of your patient. Please call if any Qs. d/w team and family Dr Karan Camarena Office: [phone] Chief Complaint; headache Reason for consult: Acute Kidney Injury HPI: Pt is a 82 F with hx of hypertension (years) active smoker, memory impairment presented with complaints of headache and found to have suprasellar mass. renal consult for elevated cr.daughter says she was told 2 months ago about kidneys but she doesn't remember what was mentioned. pt lives with daughter and had low appetite with decreased oral intake Denies OTC/herbal meds or NSAIDs No recent iodinated contrast exposure. Noted obvious episodes of low BP (98/64). ROS: grand-son bedside and as per him, pt doing well. no new complaints Cardiovascular: No chest pain. Pulmonary: No shortness of breath Gastrointestinal: denies abdominal pain No nausea. No vomiting. Genitourinary: No pain while urinating. Denies blood in urine. All other negative except as mentioned in HPI. limited from pt Physical Examination: General Appearance: Comfortable, in no acute respiratory distress, co-operative . Vitals reviewed and noted as below Head; Atraumatic, normocephalic ENT: no ulcers no thrush. Tongue is midline. Oropharynx: no rash or ulcers. EYES: Pupils are equal, round and reactive to light accommodation. Sclera is anicteric. Neck; supple no lymphadenopathy, no thyromegaly or bruit Lungs: Normal respiratory rate/effort. Breath sounds bilateral equal and clear Heart: Normal rate. s1s2 normal. No rub or gallop. Extremities: no edema. No varicose veins Neurological: Patient is alert, awake and oriented to person, place and time. Strength bilateral appropriate and equal Skin: Warm and dry. Normal turgor. No rash. Palpitation: Normal elasticity for age Abdomen: Abdomen is soft. Bowel sounds +. There is no abdominal tenderness, no guarding/rigidity no organomegaly Psych: lack insight and normal affect/mood MSK: no joint tenderness or swelling. Digits and nails normal, no deformity : kidney or bladder not palpable Labs/imaging reviewed. Past medical history, past surgical history, family history, social history, allergy reviewed and noted as below Family hx: no hx of CKD. Rest non-contributory renal imaguing: Rt kidney 4 cm simple cyst Objective - Vital Signs/Intake and Output Vital Signs (last 24 hours): Temp Pulse Resp BP Pulse Ox 97.4 F L 60 20 137/66 95 03/11/18 08:10 03/11/18 11:18 03/11/18 08:10 03/11/18 11:18 03/11/18 08:10 Intake and Output: 03/11/18 03/11/18 06:59 18:59 Intake Total 3480 Balance 3480 - Medications Medications: Current Medications Amlodipine Besylate (Norvasc) 5 mg PO DAILY [facility] Last Admin: 03/11/18 11:18 Dose: 5 mg Aspirin (Ecotrin) 81 mg PO DAILY [facility] Last Admin: 03/11/18 11:18 Dose: 81 mg Bromocriptine Mesylate (Parlodel) 5 mg PO HS [facility] Last Admin: 03/10/18 21:49 Dose: 5 mg Dexamethasone (Decadron Inj) 2 mg IVP DAILY [facility] Last Admin: 03/11/18 11:18 Dose: 2 mg Heparin Sodium (Porcine) (Heparin) 5,000 units SC Q12 [facility] PRN Reason: Protocol Last Admin: 03/11/18 11:18 Dose: 5,000 units Levothyroxine Sodium (Synthroid) 25 mcg PO 0600 [facility] Last Admin: 03/11/18 05:47 Dose: 25 mcg Nitroglycerin (Nitrostat Sl Tab) 0.4 mg SL Q5M PRN PRN Reason: Pain, moderate (4-7) Pantoprazole Sodium (Protonix Ec Tab) 40 mg PO 0600 [facility] Last Admin: 03/11/18 05:47 Dose: 40 mg - Labs Labs: 03/11/18 06:00 03/11/18 06:00 PT 12.5 SECONDS (9.4-12.5) 03/08/18 21:45 INR 1.09 03/08/18 21:45 APTT 33.1 Seconds (25.1-36.5) 03/08/18 21:45
[2018-03-11 12:14] LABS: PROLACTIN 14.3 ng/mL (3.0-18.9)
--- NOTE | 2018-03-11 13:06 | PN ---
Copied To: Aric Hernández MD Attending MD: Aric Hernández MD DATE: 03/11/2018 SUBJECTIVE: Patient denies any chest pain. She complains of headache. PHYSICAL EXAMINATION: VITAL SIGNS: Blood pressure 157/66, heart rate 57, temperature 97.4, and respirations 20. HEENT: Normocephalic. CHEST: Clear. HEART: S1 and S2, regular. EXTREMITIES: No edema. LABORATORY DATA: Hemoglobin and hematocrit 11.8 and 34.5, white count 15.9, and platelet count 309,000. SMA-7 is within normal limits except BUN of 34. Echocardiographic study revealed normal ventricular size with borderline to mild concentric LVH, mild aortic sclerosis and mild tricuspid insufficiency, right ventricular systolic pressure was measured at 39 mmHg. ASSESSMENT: 1. Hypertension. 2. Brain mass. 3. Aortic sclerosis. PLAN: Patient will continue aspirin 81 mg once a day, subcutaneous heparin 5000 units every 12 hours, Norvasc 5 mg once a day, and Synthroid 25 mcg once a day. No further cardiac workup is required at this time. Aric Hernnádez MD
--- NOTE | 2018-03-11 14:59 | CP.PCM.DIS ---
Provider - Provider Date of Admission: 03/09/18 09:38 Attending physician: Consuelo Luna MD Time Spent in preparation of Discharge (in minutes): 60 Diagnosis - Discharge Diagnosis (1) Brain mass Status: Chronic (2) Left shoulder pain Status: Chronic (3) Hyperkalemia Status: Resolved Hospital Course - Lab Results Lab Results: Micro Results 03/09/18 11:12 Urine Urine Culture - Final No Growth (<1,000 CFU/ML) Most Recent Lab Values WBC 15.9 10^3/ul (4.5-11.0) H 03/11/18 06:00 RBC 3.86 10^6/uL (3.5-6.1) 03/11/18 06:00 Hgb 11.8 g/dL (12.0-16.0) L 03/11/18 06:00 Hct 34.5 % (36.0-48.0) L 03/11/18 06:00 MCV 89.4 fl (80.0-105.0) 03/11/18 06:00 MCH 30.6 pg (25.0-35.0) 03/11/18 06:00 MCHC 34.2 g/dl (31.0-37.0) 03/11/18 06:00 RDW 13.6 % (11.5-14.5) 03/11/18 06:00 Plt Count 309 10^3/uL (120.0-450.0) 03/11/18 06:00 MPV 10.4 fl (7.0-11.0) 03/11/18 06:00 Gran % 78.8 % (50.0-68.0) H 03/11/18 06:00 Lymph % (Auto) 17.4 % (22.0-35.0) L 03/11/18 06:00 [place] % (Auto) 3.6 % (1.0-6.0) 03/11/18 06:00 Eos % (Auto) 0.1 % (1.5-5.0) L 03/11/18 06:00 Baso % (Auto) 0.1 % (0.0-3.0) 03/11/18 06:00 Gran # 12.54 (1.4-6.5) H 03/11/18 06:00 Lymph # (Auto) 2.8 (1.2-3.4) 03/11/18 06:00 [place] # (Auto) 0.6 (0.1-0.6) 03/11/18 06:00 Eos # (Auto) 0.0 (0.0-0.7) 03/11/18 06:00 Baso # (Auto) 0.02 K/mm3 (0.0-2.0) 03/11/18 06:00 PT 12.5 SECONDS (9.4-12.5) 03/08/18 21:45 INR 1.09 03/08/18 21:45 APTT 33.1 Seconds (25.1-36.5) 03/08/18 21:45 Sodium 139 mmol/L (132-148) 03/11/18 06:00 Potassium 4.5 mmol/L (3.6-5.0) 03/11/18 06:00 Chloride 104 mmol/L (98-107) 03/11/18 06:00 Carbon Dioxide 26 mmol/L (21-33) 03/11/18 06:00 Anion Gap 14 (10-20) 03/11/18 06:00 BUN 34 mg/dL (7-21) H 03/11/18 06:00 Creatinine 1.1 mg/dl (0.7-1.2) 03/11/18 06:00 Est GFR ( Amer) 58 03/11/18 06:00 Est GFR (Non-Af Amer) 48 03/11/18 06:00 POC Glucose (mg/dL) 88 mg/dL (65-110) 03/08/18 21:53 Random Glucose 77 mg/dL (70-110) 03/11/18 06:00 Calcium 10.0 mg/dL (8.4-10.5) 03/11/18 06:00 Phosphorus 2.4 mg/dL (2.5-4.5) L 03/11/18 06:00 Magnesium 1.7 mg/dL (1.7-2.2) 03/11/18 06:00 Total Bilirubin 0.2 mg/dL (0.2-1.3) 03/11/18 06:00 AST 29 U/L (14-36) 03/11/18 06:00 ALT 20 U/L (7-56) 03/11/18 06:00 Alkaline Phosphatase 58 U/L (38-126) 03/11/18 06:00 Lactate Dehydrogenase 455 U/L (333-699) 03/08/18 21:45 Total Creatine Kinase 32 U/L (35-230) L 03/08/18 21:45 Troponin I < 0.01 ng/mL 03/09/18 13:50 NT-Pro-B Natriuret Pep 1090 pg/mL (0-450) H 03/09/18 04:00 Total Protein 6.8 g/dL (5.8-8.3) 03/11/18 06:00 Albumin 3.2 g/dL (3.0-4.8) 03/11/18 06:00 Globulin 3.6 gm/dL 03/11/18 06:00 Albumin/Globulin Ratio 0.9 (1.1-1.8) L 03/11/18 06:00 Triglycerides 82 mg/dL (35-160) 03/09/18 04:00 Cholesterol 105 mg/dL (130-200) L 03/09/18 04:00 LDL Cholesterol Direct 37 mg/dL (0-129) 03/09/18 04:00 HDL Cholesterol 34 mg/dL (29-60) 03/09/18 04:00 25-OH Vitamin D Total 36.7 NG/ML (30.0-100.0) 03/10/18 06:20 Procalcitonin 0.08 NG/ML (0.19-0.49) L 03/09/18 04:00 Free T4 0.58 ng/dL (0.78-2.19) L 03/10/18 06:20 Thyroxine (T4) 3.3 ug/dL (5.5-11.0) L 03/11/18 06:00 TSH 3rd Generation 1.94 mIU/mL (0.46-4.68) 03/11/18 06:00 FSH 3rd Generation 4.0 mIU/mL 03/09/18 04:00 Luteinizing Hormone < 0.2 mIU/mL 03/09/18 04:00 Prolactin 14.3 ng/mL (3.0-18.9) 03/11/18 06:00 Human Growth Hormone 0.1 ng/mL (<or=7.1) 03/10/18 06:20 PTH Intact Whole Molec 118 pg/mL (14-64) H 03/09/18 04:00 Cortisol AM Sample 15.1 ug/dL (4.46-22.7) 03/09/18 04:00 Urine Color Yellow (YELLOW) 03/09/18 11:12 Urine Appearance Clear (CLEAR) 03/09/18 11:12 Urine pH 6.0 (4.7-8.0) 03/09/18 11:12 Ur Specific [place] 1.020 (1.005-1.035) 03/09/18 11:12 Urine Protein 30 mg/dL (<30 mg/dL) H 03/09/18 11:12 Urine Glucose (UA) Negative mg/dL (NEGATIVE) 03/09/18 11:12 Urine Ketones Negative mg/dL (NEGATIVE) 03/09/18 11:12 Urine Blood Moderate (NEGATIVE) H 03/09/18 11:12 Urine Nitrate Negative (NEGATIVE) 03/09/18 11:12 Urine Bilirubin Negative (NEGATIVE) 03/09/18 11:12 Urine Urobilinogen 0.2 E.U./dL (<1 E.U./dL) 03/09/18 11:12 Ur Leukocyte Esterase Trace Jacob/uL (NEGATIVE) H 03/09/18 11:12 Urine RBC 5 - 10 /hpf (0-2) 03/09/18 11:12 Urine WBC 0 - 2 /hpf (0-6) 03/09/18 11:12 Ur Epithelial Cells 0 - 2 /hpf (0-5) 03/09/18 11:12 Urine Bacteria Few (NEG) 03/09/18 11:12 Coarse Granular Casts Trace /hpf (0-2) H 03/09/18 11:12 Ur Random Sodium 101 meq/L 03/09/18 11:30 - Hospital Course Hospital Course: Upon Admission: Patient is a 82 y/o F smoker w/ PMH of HTN, rheumatoid arthritis, and 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 Patient also described atypical chest pain that she associated with the shoulder pain, both of which were reproducible upon palpation. She notes Motrin somewhat relieved both the symptoms in her head and shoulder. She denied any trauma or mechanical fall associated with her symptoms. Patient was ordered kayexalate in the ED to treat presenting hyperkalemia. Cardiac enzymes were ordered with troponins negative x2. Chest xray showed no acute pulmonary pathology. EKG revealed normal sinus rhythm at 95bpm. CT of the head was ordered w/out contrast confirming a 3.6 x 3.5 hyperdense supracellar mass. Patient was given Tylenol for symptom relief. Hospital course: Patient was admitted to telemetry and accepted by the hospitalist team. Brain MRI was ordered confirming presence of the supracellar mass and chronic age- related parenchymal volume loss. Endocrinology was consulted and TSH, PTH, T4, prolactin, IGF-1, LH, FSH, cortisol was ordered to evaluate the supracellar mass. The aforementioned lab values were negative, except for prolactin, TSH, and T4. Prolactin was 129 likely 2/2 compression of the pituitary stalk; patient started on bromocriptine as per endo recs. TSH was 10.4 and T4 was 3.7; patient was subsequently started on synthroid 25 mcg PO daily. Neurology was consulted as well. Patient was started on decadron 2mg. Because of significant smoking history, neurology wanted to r/o metastasis; Chest/Abdomen/Pelvis CT was ordered and did not show any signs of mets. Neurology further recommended neurosurgery evaulation. 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 Cardiology was consulted to rule out cardiac pathology. Echo was repeated and indicated 61% EF with mild concentric LVH, mild-mod AV calcifications, and mild TR. Subsequent EKG was ordered revealing no peaked T waves and normal sinus rhythm. Hyperkalemia resolved during hospital course. Nephrology was consulted due to abnormal kidney function labs. Renal Ultrasound was ordered revealing B/ L renal cysts. Upon Discharge: Neurosurgery signed off with recommendations for outpatient followup for surgical decision making. Endo signed off and recommended the addition of PO bromocriptine 5 mg qHS and synthroid 25 mcg PO daily. Neurology signed off with tapering off of decadron. No further recommendations as per cardiology and nephrology. Physical Therapy recommends continuation with home PT with family support given the fact that patient has advanced age and has R-eye blindness. Please continue with home medications: norvasc 5 mg PO daily, Aspirin 81 mg PO daily, Bromocriptine 5 mg PO qHS, Decadron 2 mg PO daily, and Synthroid 25 mcg PO daily. Continue with tylenol and motrin as needed for pain control. Please followup with neurosurgery and endocrinology as outpatient. Discharge Exam - Head Exam Head Exam: ATRAUMATIC, NORMAL INSPECTION, NORMOCEPHALIC - Eye Exam Eye Exam: PERRL (Left eye is PERRL. ). absent: Periorbital tenderness Additional comments: R eye blindness - ENT Exam ENT Exam: Mucous Membranes Moist, Normal Exam, Normal Oropharynx - Neck Exam Neck exam: Full Rom, Normal Inspection - Respiratory Exam Respiratory Exam: Clear to PA & Lateral, NORMAL BREATHING PATTERN, UNREMARKABLE. absent: Accessory Muscle Use, Chest Wall Tenderness, Rales, Rhonchi, Wheezes - Cardiovascular Exam Cardiovascular Exam: REGULAR RHYTHM, RRR, +S1, +S2. absent: JVD, Systolic Murmur - GI/Abdominal Exam GI & Abdominal Exam: Normal Bowel Sounds, Soft, Tenderness (left upper quadrant tenderness to deep palpation ). absent: Bruit, Distended, Organomegaly, Pulsatile Mass, Rebound, Rigid - Extremities Exam Extremities exam: full ROM, normal capillary refill, normal inspection, pedal pulses present - Back Exam Back exam: NORMAL INSPECTION Additional comments: Mild suprascapular tenderness with deep palpation. - Neurological Exam Neurological exam: Alert, Oriented x3 - Skin Skin Exam: Dry, Intact, Normal Color, Warm Discharge Plan - Discharge Medications Prescriptions: amLODIPine [Norvasc] 5 mg PO DAILY #21 tab Aspirin [Ecotrin] 81 mg PO DAILY #21 tabec Bromocriptine [Parlodel] 5 mg PO HS #42 tab Dexamethasone [Decadron] 2 mg PO DAILY #3 tab Levothyroxine [Synthroid] 25 mcg PO 0600 #21 tab - Follow Up Plan Condition: STABLE Disposition: HOME/ ROUTINE Patient education suggested?: Yes Instructions: Shoulder Pain (DC) Additional Instructions: If you have new or worsening symptoms please return to nearest emergency department Please follow up [facility] on March 28, 2018 at 1PM to establish care with a primary care doctor and for repeat blood work. Please obtain any refills needed for your medications from your primary care doctor. Follow up with [facility] in [facility], please call [phone] to make an appointment Follow up with neurosurgery Dr. Ramires within 3-5 days of discharge for your brain mass. STOP your home hydrochlorothiazide and take new medications as prescribed. New medications: amlodipine 5mg daily bromocriptine 5mg at night synthyroid 25mcg daily decadron 2 mg daily for 3 days Referrals: [facility] at [facility] [Outside] Bienvenido Ramires MD [Staff Provider] -
== END 2018-03-11 16:10 | disposition home or self-care (01) | DRG 644 ==
LOC: ED 20:55 → ERH 03-09 00:08 → 3RNO 03-09 01:13 → OBSVTOIN 03-09 09:38
PROVIDERS: ADMIT Internal Medicine; ATTEND Internal Medicine
DX: D35.2 Benign neoplasm of pituitary gland (principal); N17.9 Acute kidney failure, unspecified; I12.9 Hypertensive chronic kidney disease with stage 1 through stage 4 chronic kidney disease, or unspecified chronic kidney disease; N18.3 Chronic kidney disease, stage 3 (moderate); E86.0 Dehydration; F03.90 Unspecified dementia, unspecified severity, without behavioral disturbance, psychotic disturbance, mood disturbance, and anxiety; E87.5 Hyperkalemia; E03.9 Hypothyroidism, unspecified; R51 Headache; M06.9 Rheumatoid arthritis, unspecified; R07.89 Other chest pain; E83.52 Hypercalcemia; N28.1 Cyst of kidney, acquired; K59.00 Constipation, unspecified; F17.210 Nicotine dependence, cigarettes, uncomplicated; I35.8 Other nonrheumatic aortic valve disorders; M25.512 Pain in left shoulder; H54.61 Unqualified visual loss, right eye, normal vision left eye